=== PATIENT | female | born 1975 | race African-American/Black ===

== ENCOUNTER 2017-06-22 07:18 | Observation (INO) | payer BC, OTHER ==
[2017-06-22] VITALS (10 sets, daily range): BP systolic 99–128; BP diastolic 66–80; PULSE 82–91; RESP 16–18; TEMP 97.9–98.7; O2SAT 96–100
[~2017-06-22] VITALS: Ht 160 cm; Wt 87.0 kg
[~2017-06-22 07:18] MED LIST: MAXZ25 PO; TOPI50TA4 PO
--- NOTE | 2017-06-22 07:35 | PD ---
HPI Chief Complaint: Chest Pain Time Seen by Provider: 07:33 Travel History International Travel<30 days: No Contact w/Intl Traveler<30days: No Traveled to known affect area: No History of Present Illness HPI 41-year-old female patient with history of hypertension, presents to the ER today with 3 days history of 4 out of 10 left-sided abdominal pains which are constant and dull. She denies any nausea, vomiting, shortness of breath, or any other symptoms. She does not know of any exacerbating or alleviating factors. She denies any previous history of chest pains. Modifying Factors: None Associated Signs & Symptoms: Left-sided chest pain for 3 days Risk Factors: None PFSH Past Medical History Asthma: Yes ( INDUCED ASTHMA) Heart Rhythm Problems: No Cardiac Catheterization: No Cardiovascular Problems: Yes (htn) High Cholesterol: No Congestive Heart Failure: No Diabetes: No Diminished Hearing: No Gastrointestinal Disorders: No Genitourinary: Yes (HX OF UTI) Headaches: Yes Hypertension: Yes Immunizations Current: Yes Migraines: Yes Myocardial Infarction: No : 6 Para: 4 Miscarriage: 2 : 0 Tubal Ligation: Yes (2000) Past Surgical History Abdominal Aneurysm Repair: Yes (C SECTION X 2) Abdominal Surgery: Yes ( TIMES 2) Section: Yes (X 2) Coronary Artery Bypass Graft: No Social History Alcohol Use: No Tobacco Use: No Substance Use: No Allergies-Medications (Allergen,Severity, Reaction): Coded Allergies: No Known Allergies (Verified Adverse Reaction, Unknown, 06/22/17) Reported Meds & Prescriptions Reported Meds & Active Scripts Active Reported Topamax (Topiramate) 50 Mg Tab 50 Mg PO BID Meloxicam 15 Mg Tab 15 Mg PO DAILY Metoprolol Succinate ER 24 HR (Metoprolol Succinate) 100 Mg Tab 100 Mg PO DAILY Review of Systems Except as stated in HPI: all other systems reviewed are Neg Physical Exam Narrative GENERAL: Well-developed middle-aged -[place] female patient currently and mild distress. Awake and oriented 3. SKIN: Focused skin assessment warm/dry. HEAD: Atraumatic. Normocephalic. EYES: Pupils equal and round. No scleral icterus. No injection or drainage. ENT: No nasal bleeding or discharge. Mucous membranes pink and moist. NECK: Trachea midline. No JVD. Supple. CARDIOVASCULAR: Regular rate and rhythm. No murmur appreciated. RESPIRATORY: No accessory muscle use. Clear to auscultation. Breath sounds equal bilaterally. GASTROINTESTINAL: Abdomen soft, non-tender, nondistended. Hepatic and splenic margins not palpable. MUSCULOSKELETAL: No obvious deformities. No clubbing. No cyanosis. No edema. NEUROLOGICAL: Awake and alert. No obvious cranial nerve deficits. Motor grossly within normal limits. Normal speech. PSYCHIATRIC: Appropriate mood and affect; insight and judgment normal. Data Data Last Documented VS Vital Signs Date Time Temp Pulse Resp B/P (MAP) Pulse Ox O2 Delivery O2 Flow Rate FiO2 06/22/17 07:30 16 100 Room Air 06/22/17 07:30 86 06/22/17 07:22 98.7 124/73 (90) Orders Orders Electrocardiogram (06/22/17 07:33) Basic Metabolic Panel (Bmp) (06/22/17 07:33) Ckmb (Isoenzyme) Profile (06/22/17 07:33) Complete Blood Count With Diff (06/22/17 07:33) D-Dimer (06/22/17 07:33) Magnesium (Mg) (06/22/17 07:33) Prothrombin Time / Inr (Pt) (06/22/17 07:33) Act Partial Throm Time (Ptt) (06/22/17 07:33) Troponin I (06/22/17 07:33) Chest, Single Ap (06/22/17 07:33) Ecg Monitoring (06/22/17 07:33) Bilateral Bp Monitoring (06/22/17 07:33) Iv Access Insert/Monitor (06/22/17 07:33) Oximetry (06/22/17 07:33) Oxygen Administration (06/22/17 07:33) Sodium Chloride 0.9% Flush (Ns Flush) (06/22/17 07:45) CKMB (06/22/17 07:30) CKMB% (06/22/17 07:30) Potassium Chlor 20 Meq Premix (Kcl 20 Me (06/22/17 08:15) Potassium Chloride Eff (K-Lyte Cl Eff) (06/22/17 08:15) Sodium Chlor 0.9% 1000 Ml Inj (Ns 1000 M (06/22/17 09:00) Admit Order (Ed Use Only) (06/22/17 09:05) Labs Laboratory Tests Test 06/22/17 07:30 White Blood Count 5.1 TH/MM3 Red Blood Count 4.38 MIL/MM3 Hemoglobin 10.5 GM/DL Hematocrit 33.7 % Mean Corpuscular Volume 77.0 FL Mean Corpuscular Hemoglobin 24.0 PG Mean Corpuscular Hemoglobin Concent 31.1 % Red Cell Distribution Width 15.2 % Platelet Count 395 TH/MM3 Mean Platelet Volume 7.3 FL Neutrophils (%) (Auto) 49.6 % Lymphocytes (%) (Auto) 40.5 % Monocytes (%) (Auto) 7.5 % Eosinophils (%) (Auto) 1.6 % Basophils (%) (Auto) 0.8 % Neutrophils # (Auto) 2.5 TH/MM3 Lymphocytes # (Auto) 2.1 TH/MM3 Monocytes # (Auto) 0.4 TH/MM3 Eosinophils # (Auto) 0.1 TH/MM3 Basophils # (Auto) 0.0 TH/MM3 CBC Comment AUTO DIFF Differential Comment AUTO DIFF CONFIRMED Prothrombin Time 10.0 SEC Prothromb Time International Ratio 1.0 RATIO Activated Partial Thromboplast Time 27.1 SEC D-Dimer Quantitative (PE/DVT) LESS THAN 0.19 MG/L FEU Blood Urea Nitrogen 18 MG/DL Creatinine 0.97 MG/DL Random Glucose 98 MG/DL Calcium Level 8.4 MG/DL Magnesium Level 1.9 MG/DL Sodium Level 136 MEQ/L Potassium Level 2.8 MEQ/L Chloride Level 101 MEQ/L Carbon Dioxide Level 28.3 MEQ/L Anion Gap 7 MEQ/L Estimat Glomerular Filtration Rate 76 ML/MIN Total Creatine Kinase 152 U/L Creatine Kinase MB 0.8 NG/ML Troponin I LESS THAN 0.02 NG/ML MDM Medical Decision Making Medical Screen Exam Complete: Yes Emergency Medical Condition: Yes Medical Record Reviewed: Yes Interpretation(s) EKG shows normal sinus rhythm at a rate of 87 bpm. There is LVH. No signs of acute ST elevations or depressions. Laboratory Tests Test 06/22/17 07:30 Hemoglobin 10.5 GM/DL (11.6-15.3) Hematocrit 33.7 % (35.0-46.0) Mean Corpuscular Volume 77.0 FL (80.0-100.0) Mean Corpuscular Hemoglobin 24.0 PG (27.0-34.0) Mean Corpuscular Hemoglobin Concent 31.1 % (32.0-36.0) Calcium Level 8.4 MG/DL (8.5-10.1) Potassium Level 2.8 MEQ/L (3.5-5.1) Estimat Glomerular Filtration Rate 76 ML/MIN (>89) Troponin I LESS THAN 0.02 NG/ML Last 24 hours Impressions Chest X-Ray 06/22/17 0733 Signed Impressions: Service Date/Time: Thursday, June 22, 2017 07:44 - CONCLUSION: 1. No acute cardiopulmonary disease. Edmundo Andrews MD Differential Diagnosis Chest pain: Costochondritis versus pneumonia versus PE versus ACS Narrative Course Lab work shows hypokalemia and IV potassium and p.o. potassium was given in the ER. Cardiac enzymes are negative. EKG did not show any signs of acute ST changes. Chest x-ray was unremarkable. Vital signs are stable in the ER. At this point, my plan would be to admit her to the chest pain center for further evaluation and for treatment for hypokalemia. Case was discussed with Dr. Blood for admission. Diagnosis Primary Impression: Chest pain Additional Impression: Hypokalemia Admitting Information Admitting Physician Requests: Admit Shelby Jasso MD Jun 22, 2017 07:35
[2017-06-22 07:42] LABS: AUTOMATED NEUTROPHIL # 2.5 TH/MM3 (1.8-7.7); BASOPHIL % 0.8 % (0.0-2.0); EOSINOPHIL # 0.1 TH/MM3 (0-0.4); EOSINOPHIL % 1.6 % (0.0-4.0); HEMATOCRIT 33.7 % (35.0-46.0); HEMOGLOBIN 10.5 GM/DL (11.6-15.3); LYMPH % 40.5 % (9.0-44.0); LYMPHOCYTE # 2.1 TH/MM3 (1.0-4.8); MEAN CORPUSCULAR HGB CONC 31.1 % (32.0-36.0); MEAN PLATELET VOLUME 7.3 FL (7.0-11.0); MONO % 7.5 % (0.0-8.0); MONOCYTE # 0.4 TH/MM3 (0-0.9); NEUT % 49.6 % (16.0-70.0); PLATELET COUNT 395 TH/MM3 (150-450); RED BLOOD COUNT 4.38 MIL/MM3 (4.00-5.30); RED CELL DISTRIBUTION WIDTH 15.2 % (11.6-17.2); WHITE BLOOD COUNT 5.1 TH/MM3 (4.0-11.0)
[2017-06-22] MEDS ORDERED: SODIUM CHLORIDE 0.9% FLUSH 10 ML FLUSH IVF PRN (07:45)
--- NOTE | 2017-06-22 07:54 | RADRPT ---
EXAM DATE/TIME: 06/22/2017 07:44 [facility] COMPARISON: No previous studies available for comparison. INDICATIONS : Chest pain on and off for 3 days. MEDICAL HISTORY : Hypertension. SURGICAL HISTORY : None. ENCOUNTER: Initial ACUITY: 3 days PAIN SCORE: 4/10 LOCATION: Bilateral chest FINDINGS: A single view of the chest demonstrates the lungs to be symmetrically aerated without evidence of mas s, infiltrate or effusion. The cardiomediastinal contours are unremarkable. Levoscoliosis of the lo wer thoracic spine. Osseous structures are intact. CONCLUSION: 1. No acute cardiopulmonary disease. Edmundo Andrews MD on June 22, 2017 at 7:52 Board Certified Radiologist. This report was verified electronically.
[2017-06-22 08:03] LABS: BICARBONATE 28.3 MEQ/L (21.0-32.0); CALCIUM 8.4 MG/DL (8.5-10.1); CHLORIDE 101 MEQ/L (98-107); CREATININE 0.97 MG/DL (0.50-1.00); GLOMERULAR FILTRATION RATE 76 ML/MIN (>89); GLUCOSE,RANDOM 98 MG/DL (74-106); MAGNESIUM 1.9 MG/DL (1.5-2.5); SODIUM (NA) 136 MEQ/L (136-145); TROPONIN I LESS THAN 0.02 NG/ML (0.02-0.05)
[2017-06-22 08:04] LABS: BLOOD UREA NITROGEN 18 MG/DL (7-18)
[2017-06-22] MEDS ORDERED: TOPA50TA7 PO (08:05)
[2017-06-22] MEDS ORDERED: MELO15TA20 PO (08:05)
[2017-06-22] MEDS ORDERED: METO1TAB43 PO (08:05)
[2017-06-22] MEDS ORDERED: POTASSIUM CHLOR 20 MEQ PREMIX 100 ML IV ONE (08:15)
[2017-06-22] MEDS ORDERED: POTASSIUM CHLORIDE 25 MEQ EFFERVESCENT TAB PO ONE (08:15)
[2017-06-22 08:33] LABS: D-DIMER LESS THAN 0.19 MG/L FEU (0.00-0.50)
[2017-06-22] MEDS ORDERED: SODIUM CHLOR 0.9% 1000 ML INJ 1,000 ML IV ONE (09:00)
[2017-06-22] MEDS ORDERED: ACETAMINOPHEN 500 MG CPLT PO PRN (10:00)
[2017-06-22] MEDS ORDERED: POTASSIUM CHLORIDE 10 MEQ CONTROLLED RELEASE TAB PO ONE (10:00)
[2017-06-22] MEDS ORDERED: ONDANSETRON HCL 4 MG/2 ML VIAL IV PUSH PRN (10:00)
[2017-06-22] MEDS ORDERED: SODIUM CHLORIDE 0.9% FLUSH 10 ML FLUSH IV FLUSH PRN (10:00)
[2017-06-22 11:05] LABS: MAGNESIUM 1.8 MG/DL (1.5-2.5)
--- NOTE | 2017-06-22 11:11 | HHI.HP ---
[facility] Service [facility] Primary Care Physician Malcom Hayes, DO Admission Diagnosis Chest pain/hypokalemia Diagnoses: (1) Chest pain Diagnosis: Principal (2) Hypokalemia Diagnosis: Principal Chief Complaint: Chest pain Travel History International Travel<30 Days: No Contact w/Intl Traveler <30 Da: No Traveled to Known Affected Are: No History of Present Illness This is a pleasant 41-year-old female patient with unknown medical history of hypertension and migraines who presented to the ED with complaints of chest pain. Patient states that over the last three days she has had intermittent chest discomfort that comes and goes randomly, she states the pain is sharp in nature located in her midsternal chest, denies any radiation of pain. Patient states the pain is a four out of ten on pain scale at its worse, lasts several seconds and randomly subsides. Denies any associated diaphoresis, shortness of breath or vomiting. She does state that she's had intermittent nausea and dizziness for the past couple days associated with the pain. Patient denies any known alleviating or relieving factors. Patient states that she did take some Tums and Zantac this morning possibly relating the pain to reflux, which did not help the pain. She does state she took her BP this morning which was elevated. Patient works as an COMMUNICATIONS FIELD TECHNICIAN, has been recently diagnosed with scoliosis and has intermittently complained of back pain. Two weeks ago she saw Dr. Bradley who prescribed her Meloxicam, denies any other changes to her medications. Denies ever undergoing a cardiac stress test. Denies any past or current tobacco use. Mother had an MN at the age of 50. Denies any recent illness including fever, chills, headache, shortness of breath, ab pain, vomiting, diarrhea or dysuria. PCP is Dr. Hayes, last seen 2 months ago with no changes to medications. Review of Systems Constitutional: DENIES: Fever, Chills Eyes: DENIES: Blurred vision, Diplopia Respiratory: DENIES: Cough, Shortness of breath Cardiovascular: COMPLAINS OF: Chest pain, Palpitations, DENIES: Syncope Gastrointestinal: COMPLAINS OF: Nausea, DENIES: Abdominal pain, Black stools, Constipation, Diarrhea, Vomiting Hematologic/lymphatic: DENIES: Bruising Immunologic/allergic: DENIES: Eczema Neurologic: DENIES: Abnormal gait Psychiatric: COMPLAINS OF: Anxiety Except as stated in HPI: all other systems reviewed are Neg Past Family Social History Past Medical History Hypertension Arthritis Migraines Past Surgical History 2 Reported Medications Active Reported Topamax (Topiramate) 50 Mg Tab 50 Mg PO BID Meloxicam 15 Mg Tab 15 Mg PO DAILY Metoprolol Succinate ER 24 HR (Metoprolol Succinate) 100 Mg Tab 100 Mg PO DAILY Allergies: Coded Allergies: No Known Allergies (Verified Allergy, Unknown, 06/22/17) Active Ordered Medications Current Medications Medications (Trade) Dose Ordered Sig/Jero Route Start Time Stop Time Status Last Admin (NS Flush) 2 ml UNSCH PRN IVF 06/22/17 07:45 (NS Flush) 2 ml UNSCH PRN IV FLUSH 06/22/17 10:00 (NS Flush) 2 ml BID IV FLUSH 06/22/17 21:00 (Tylenol) 500 mg Q4H PRN PO 06/22/17 10:00 (Zofran Inj) 4 mg Q6H PRN IV PUSH 06/22/17 10:00 Family History Maternal medical history significant for MN at the age of 50, stroke and brain aneurysm. Father has history of hypertension. Social History Denies any past or current tobacco use, denies any alcohol use or illicit drug use. Physical Exam Vital Signs Vital Signs Date Time Temp Pulse Resp B/P (MAP) Pulse Ox O2 Delivery O2 Flow Rate FiO2 06/22/17 10:45 06/22/17 10:10 91 16 105/67 (80) 100 Room Air 06/22/17 09:10 84 16 99/68 (78) 100 Room Air 06/22/17 08:10 87 16 106/66 (79) 100 Room Air 06/22/17 07:30 16 100 Room Air 06/22/17 07:30 86 16 100 Room Air 06/22/17 07:30 100 Room Air 06/22/17 07:22 98.7 86 16 124/73 (90) 100 Physical Exam GENERAL: Well-nourished, well-developed patient in NAD. SKIN: Warm and dry. No rash. HEAD: Normocephalic. Atraumatic. EYES: Pupils equal and round. No scleral icterus. No injection or drainage. ENT: No nasal bleeding or discharge. Mucous membranes pink and moist. NECK: Supple. Trachea midline. CARDIOVASCULAR: Regular rate and rhythm. S1, S2 noted. No murmur appreciated. No reproducible chest pain to palpation. RESPIRATORY: No accessory muscle use. Clear to auscultation. Breath sounds equal bilaterally. GASTROINTESTINAL: Abdomen soft, non-tender, nondistended. Normoactive bowel sounds x4. MUSCULOSKELETAL: No obvious deformities. Extremities without clubbing, cyanosis , or edema. NEUROLOGICAL: Awake and alert. No obvious cranial nerve deficits. Motor grossly within normal limits. 5/5 muscle strength in bilateral upper and lower extremities. Normal speech. PSYCHIATRIC: Appropriate mood and affect; insight and judgment normal. Laboratory Laboratory Tests Test 06/22/17 07:30 06/22/17 10:30 White Blood Count 5.1 Red Blood Count 4.38 Hemoglobin 10.5 Hematocrit 33.7 Mean Corpuscular Volume 77.0 Mean Corpuscular Hemoglobin 24.0 Mean Corpuscular Hemoglobin Concent 31.1 Red Cell Distribution Width 15.2 Platelet Count 395 Mean Platelet Volume 7.3 Neutrophils (%) (Auto) 49.6 Lymphocytes (%) (Auto) 40.5 Monocytes (%) (Auto) 7.5 Eosinophils (%) (Auto) 1.6 Basophils (%) (Auto) 0.8 Neutrophils # (Auto) 2.5 Lymphocytes # (Auto) 2.1 Monocytes # (Auto) 0.4 Eosinophils # (Auto) 0.1 Basophils # (Auto) 0.0 CBC Comment AUTO DIFF Differential Comment AUTO DIFF CONFIRMED Prothrombin Time 10.0 Prothromb Time International Ratio 1.0 Activated Partial Thromboplast Time 27.1 D-Dimer Quantitative (PE/DVT) LESS THAN 0.19 Blood Urea Nitrogen 18 Creatinine 0.97 Random Glucose 98 Calcium Level 8.4 Magnesium Level 1.9 1.8 Sodium Level 136 Potassium Level 2.8 Chloride Level 101 Carbon Dioxide Level 28.3 Anion Gap 7 Estimat Glomerular Filtration Rate 76 Total Creatine Kinase 152 Creatine Kinase MB 0.8 Troponin I LESS THAN 0.02 Result Diagram: 06/22/1772906/22/17729 Imaging Last Impressions Chest X-Ray 06/22/17732 Signed Impressions: Service Date/Time: Thursday, June 22, 2017 07:44 - CONCLUSION: 1. No acute cardiopulmonary disease. Edmundo Andrews MD Septic Shock Reassessment Septic shock perfusion: reassessment completed Caprini VTE Risk Assessment Caprini VTE Risk Assessment: No/Low Risk (score <= 1) Caprini Risk Assessment Model Point Value = 1 Point Value = 2 Point Value = 3 Point Value = 5 Age 41-60 Minor surgery BMI > 25 kg/m2 Swollen legs Varicose veins or History of unexplained or recurrent spontaneous Oral contraceptives or hormone replacement Sepsis (< 1 month) Serious lung disease, including pneumonia (< 1 month) Abnormal pulmonary function Acute myocardial infarction Congestive heart failure (< 1 month) History of inflammatory bowel disease Medical patient at bed rest Age 61-74 Arthroscopic surgery Major open surgery (> 45 min) Laparoscopic surgery (> 45 min) Malignancy Confined to bed (> 72 hours) Immobilizing plaster cast Central venous access Age >= 75 History of VTE Family history of VTE Factor V Leiden Prothrombin [id number] Lupus anticoagulant Anticardiolipin antibodies Elevated serum homocysteine Heparin-induced thrombocytopenia Other congenital or acquired thrombophilia Stroke (< 1 month) Elective arthroplasty Hip, pelvis, or leg fracture Acute spinal cord injury (< 1 month) Prophylaxis Regimen Total Risk Factor Score Risk Level Prophylaxis Regimen 0-1 Low Early ambulation 2 Moderate Order ONE of the following: *Sequential Compression Device (SCD) *Heparin 5000 units SQ BID 3-4 Higher Order ONE of the following medications: *Heparin 5000 units SQ TID *Enoxaparin/Lovenox 40 mg SQ daily (WT < 150 kg, CrCl > 30 mL/min) *Enoxaparin/Lovenox 30 mg SQ daily (WT < 150 kg, CrCl > 10-29 mL/min) *Enoxaparin/Lovenox 30 mg SQ BID (WT < 150 kg, CrCl > 30 mL/min) AND/OR *Sequential Compression Device (SCD) 5 or more Highest Order ONE of the following medications: *Heparin 5000 units SQ TID (Preferred with Epidurals) *Enoxaparin/Lovenox 40 mg SQ daily (WT < 150 kg, CrCl > 30 mL/min) *Enoxaparin/Lovenox 30 mg SQ daily (WT < 150 kg, CrCl > 10-29 mL/min) *Enoxaparin/Lovenox 30 mg SQ BID (WT < 150 kg, CrCl > 30 mL/min) AND *Sequential Compression Device (SCD) Assessment and Plan Problem List: (1) Chest pain ICD Code: R07.9 - Chest pain, unspecified Status: Acute Plan: Patient has been admitted to the chest pain center for observation. Serial EKGs and serial troponins and ordered for ruling out ACS purposes. Initial troponin negative. Follow trend. Chest pain has resolved. Continue cardiac telemetry, monitor for any arrhythmias. Chest x-ray reviewed showing no acute cardiopulmonary disease. D-dimer is negative. CBC reviewed, appears that patient has chronic anemia, stable. Aspirin ordered. EKG reviewed showing normal sinus rhythm, controlled heart rate, no ST changes. Patient will likely undergo a cardiac treadmill stress test to further rule out any possibility of ischemia. Patient stable at this time and agreeable to the plan. (2) Hypokalemia ICD Code: E87.6 - Hypokalemia Status: Acute Plan: Potassium on admission 2.8. Replacement ordered. Recheck this afternoon. (3) Hypertension ICD Code: I10 - Essential (primary) hypertension Plan: Blood pressure has been controlled. Continue to monitor. Assessment and Plan Patient underwent cardiac treadmill stress tests, images reviewed by on-call teacher physically impaired for chest pain center, suggesting ischemia. Recommendations for Lexiscan. Patient updated about results, agreeable to the plan. Will continue to monitor. Patient underwent Lexiscan, EF 54%, unremarkable, low risk. Intact wall motion and thickening without hypokinetic or dyskinetic segments. Patient updated about results, will discharge home with recommendations to follow-up with PCP. Hypokalemia resolved. Vickie Blackmon Jun 22, 2017 11:11
[2017-06-22 11:13] LABS: TROPONIN I LESS THAN 0.02 NG/ML (0.02-0.05)
[2017-06-22] MEDS ORDERED: ASPIRIN 325 MG TAB PO ONE (11:30)
[2017-06-22] MEDS ORDERED: REGADENOSON INJ 0.4 MG/5 ML SYR IV ONE (15:06)
[2017-06-22] MEDS ORDERED: POTASSIUM CHLORIDE 20 MEQ CONTROLLED RELEASE TAB PO ONE (16:15)
--- NOTE | 2017-06-22 16:31 | RADRPT ---
EXAM DATE/TIME: 06/22/2017 14:55 [facility] COMPARISON: No previous studies available for comparison. INDICATIONS : Substernal chest pain with nausea and dizziness. Angina. Abnormal exercise treadmill test. DOSE: 25.4 mCi Tc99m Myoview at stress. 8.5 mCi Tc99m Myoview at rest. 0.4 mg Lexiscan STRESS SYMPTOMS: Dyspnea, dizziness and headache. EJECTION FRACTION: 54% MEDICAL HISTORY : Hypertension. Asthma. SURGICAL HISTORY : Tubal ligation. section. ENCOUNTER: Initial ACUITY: 1 day PAIN SCALE: 6/10 LOCATION: Substernal chest TECHNIQUE: The patient underwent pharmacologic stress with infusion of prescribed dose. Continuous ECG tracing was monitored during stress. Gated SPECT imaging was performed after stress and conventional SPECT i maging was performed at rest. The examination was performed on a SPECT/CT scanner, both attenuation and non-corrected datasets were reviewed. FINDINGS: DISTRIBUTION: The maximum perfused segment at stress is in the lateral wall. PERFUSION STUDY: The pattern of perfusion at stress is within normal limits. GATED STUDY: There is intact wall motion and thickening without hypokinetic or dyskinetic segments. CONCLUSION: Unremarkable myocardial perfusion scan. RISK CATEGORY: Low (<1% Annual Mortality Rate) Darwin Camejo MD on June 22, 2017 at 16:29 Board Certified Radiologist. This report was verified electronically.
--- NOTE | 2017-06-22 16:53 | HHI.DCPOC ---
Discharge Care Plan Diagnosis: (1) Hypokalemia (2) Chest pain Goals to Promote Your Health * To prevent worsening of your condition and complications * To maintain your health at the optimal level Directions to Meet Your Goals Take your medications as prescribed Follow your dietary instruction Follow activity as directed Keep your appointments as scheduled Take your immunizations and boosters as scheduled If your symptoms worsen call your PCP, if no PCP go to Urgent Care Center or Emergency Room Smoking is Dangerous to Your Health. Avoid second hand smoke Call the 24-hour hour crisis hotline for domestic abuse at Vickie Blackmon Jun 22, 2017 16:52
[2017-06-22 17:40] LABS: CHOLESTEROL/ HDL RATIO 2.99 RATIO; HDL CHOLESTEROL 58.5 MG/DL (40.0-60.0)
--- NOTE | 2017-06-22 19:49 | EKG ---
Date Performed: 06/22/2017 Time Performed: 10:31:24 PTAGE: 41 years EKG: Sinus rhythm MINIMAL VOLTAGE CRITERIA FOR LVH, CONSIDER NORMAL VARIANT BORDERLINE ECG PREVIOUS TRACING : 06/22/2017 07.26 Since the prior tracing, there has been no significant arias DOCTOR: Cely Wilcox Interpretating Date/Time 06/22/2017 19:47:53
--- NOTE | 2017-06-22 19:49 | EKG ---
Date Performed: 06/22/2017 Time Performed: 07:26:43 PTAGE: 41 years EKG: Sinus rhythm MODERATE VOLTAGE CRITERIA FOR LVH, CONSIDER NORMAL VARIANT NONSPECIFIC T-WAVE ABNORMALITY BORDERLINE ECG PREVIOUS TRACING : 08/18/2015 02.49 DOCTOR: Cely Wilcox Interpretating Date/Time 06/22/2017 19:47:37
[2017-06-22] MEDS ORDERED: SODIUM CHLORIDE 0.9% FLUSH 10 ML FLUSH IV FLUSH SCH (21:00)
[2017-06-22] MEDS ORDERED: TOPIRAMATE 25 MG TAB PO SCH (21:00)
[2017-06-23] MEDS ORDERED: MELOXICAM 15 MG TAB PO SCH (09:00)
--- NOTE | 2017-06-23 15:59 | TR ---
Date Performed: 06/22/2017 Time Performed: 15:18:12 DOCTOR: Darwin Kowalski DRUG LIST: CLINICAL HISTORY: CHEST PAIN REASON FOR TEST: Angina REASON FOR ENDING: OBSERVATION: CONCLUSION: COMMENTS: Lexiscan stress test was performed under standard four minute protocol. Radionuclide was injected one minute prior to ending the test. No electrocardiographic abormalities were present t o suggest ischemia. Nuclear imaging and interpretation are pending.
== END 2017-06-22 18:52 | disposition home or self-care (01) ==
LOC: PHED 07:18 → PHEDA 09:06 → PH3B 10:48
PROVIDERS: ADMIT Hospitalist; ATTEND Hospitalist
DX: R07.89 Other chest pain (principal); E87.6 Hypokalemia; I10 Essential (primary) hypertension; M19.90 Unspecified osteoarthritis, unspecified site; G43.909 Migraine, unspecified, not intractable, without status migrainosus; D64.9 Anemia, unspecified; Z79.899 Other long term (current) drug therapy; R42 Dizziness and giddiness; R11.0 Nausea; M41.9 Scoliosis, unspecified; M54.9 Dorsalgia, unspecified; R94.31 Abnormal electrocardiogram [ECG] [EKG]
CPT/HCPCS: 71045; 78452; 80048; 80061; 82550; 82552; 83735; 84132; 84484; 85025; 85379; 85610; 85730; 93005; 93017; 96365; 96366; 99285; A9502; G0378; J2785; J3480; J7030

== ENCOUNTER 2017-09-21 09:01 | Emergency (ER) | payer OTHER ==
[~2017-09-21] VITALS: Ht 160 cm; Wt 89.0 kg
[~2017-09-21 09:01] MED LIST changes: -MAXZ25 PO; +MELO15TA20 PO; +METO1TAB43 PO; +TOPA50TA7 PO; -TOPI50TA4 PO
[2017-09-21 09:07] VITALS: BP 143/77; PULSE 97; RESP 16; TEMP 98.5; O2SAT 100
[2017-09-21] MEDS ORDERED: methylPREDNISolone SOD SUCC 125 MG/2 ML VIAL IM ONE (10:30)
[2017-09-21] MEDS ORDERED: KETOROLAC TROMETHAMINE 60 MG/2 ML (IM) VIAL IM ONE (10:30)
[2017-09-21] MEDS ORDERED: METHOCARBAMOL 500 MG TAB PO ONE (10:30)
--- NOTE | 2017-09-21 10:59 | PD ---
HPI Chief Complaint: Musculoskeletal Complaint Time Seen by Provider: 10:10 (Enedina Hastings) Time Seen by Provider: 10:10 (Isac Tejeda MD) Travel History International Travel<30 days: No Contact w/Intl Traveler<30days: No Traveled to known affect area: No (Enedina Hastings) History of Present Illness HPI 41-year-old female presents emergency department complaining of left lower lumbar pain with radiation into the buttocks that has been present for approximately 1 week. Says that she has a history of scoliosis and recently followed up with an orthopedic physician 1 month ago but has not followed up with a primary care or anyone else regarding these complaints today. Patient says she has had some tingling of the left thigh but denies any numbness. Denies significant weakness although says she has had difficulty getting into her car because of the pain. Her pain is moderate in severity. Says she is used [id number] medications and ice packs without significant improvement. This pain is similar to her previous episodes. Denies fevers, loss of bowel or bladder function, saddle anesthesia, IV drug use, direct trauma. (Enedina Hastings) FOR[facility]LY [facility] Past Medical History Anemia: Yes Asthma: Yes ( INDUCED ASTHMA) Heart Rhythm Problems: No Cardiac Catheterization: No Cardiovascular Problems: Yes (htn) High Cholesterol: No Congestive Heart Failure: No Diabetes: No Diminished Hearing: No Gastrointestinal Disorders: No Genitourinary: Yes (HX OF UTI) Headaches: Yes Hypertension: Yes Immunizations Current: Yes Migraines: Yes Myocardial Infarction: No : 5 Para: 4 Miscarriage: 1 : 0 Tubal Ligation: Yes (2000) (Enedina Hastings) Past Surgical History Abdominal Aneurysm Repair: Yes (C SECTION X 2) Abdominal Surgery: Yes ( TIMES 2) Section: Yes (X 2) Coronary Artery Bypass Graft: No (Enedina Hastings) Social History Alcohol Use: No Tobacco Use: No (NEVER) Substance Use: No (Enedina Hastings) Allergies-Medications (Allergen,Severity, Reaction): Coded Allergies: No Known Allergies (Verified Allergy, Unknown, 09/21/17) Reported Meds & Prescriptions Reported Meds & Active Scripts Active (Isac Tejeda MD) Review of Systems Except as stated in HPI: all other systems reviewed are Neg (Enedina Hastings) Physical Exam Narrative GENERAL: Well-nourished, well-developed patient, in NAD SKIN: Focused skin assessment warm/dry. No rashes or lesions. HEAD: Normocephalic. Atraumatic. EYES: No scleral icterus. No injection or drainage. THROAT: No pharyngeal injection, exudates, or tonsillar hypertrophy. Airway is patent. NECK: Supple, trachea midline. No JVD or lymphadenopathy. No meningismus. No midline tenderness CARDIOVASCULAR: Regular rate and rhythm without murmurs, gallops, or rubs. RESPIRATORY: Breath sounds equal bilaterally. No accessory muscle use. No wheezes, rales, or rhonchi MUSCULOSKELETAL: No cyanosis, or edema. BACK: No CVA tenderness. No rash. No point tenderness on palpation of the spine. Significant TTP to left lower paraspinous muscles with obvious muscle tension and spasms. Neurovascularly intact lower extremities. (Enedina Hastings) Data Data Last Documented VS Vital Signs Date Time Temp Pulse Resp B/P (MAP) Pulse Ox O2 Delivery O2 Flow Rate FiO2 09/21/17 11:11 16 09/21/17 09:07 98.5 97 143/77 (99) 100 (Isac Tejeda MD) Orders Orders Methocarbamol (Robaxin) (09/21/17 10:30) Methylprednisolone So Succ Inj (Solumedr (09/21/17 10:30) Ketorolac Inj (Toradol Inj) (09/21/17 10:30) Ed Discharge Order (09/21/17 11:20) (Isac Tejeda MD) MDM Medical Decision Making Medical Screen Exam Complete: Yes Emergency Medical Condition: Yes Differential Diagnosis lumbago, sciatica, muscle spasms, fracture, cauda equina syndrome Narrative Course 41-year-old female presents emergency department complaining of left lower lumbar pain with radiation into the buttocks that has been present for approximately 1 week. Says that she has a history of scoliosis and recently followed up with an orthopedic physician 1 month ago but has not followed up with a primary care or anyone else regarding these complaints today. Denies inciting events. Patient says she has had some tingling of the left thigh but denies any numbness. Denies significant weakness although says she has had difficulty getting into her car because of the pain. Her pain is moderate in severity. Says she is used [id number] medications and ice packs without significant improvement. This pain is similar to her previous episodes. Denies fevers, loss of bowel or bladder function, saddle anesthesia, IV drug use , direct trauma. Vital signs are stable. Physical exam findings consistent with muscle spasms the left lumbar paraspinous muscles with some tenderness palpation of the left glutes. Patient given Robaxin, Solu-Medrol, Toradol in the emergency department today. She will be discharged with Robaxin and Medrol Dosepak. She may continue Tylenol Motrin per package instructions for pain relief. She strongly advised to follow-up with primary care physician and orthopedic physician as her scoliosis may be worsening. (Enedina Hastings) Diagnosis Primary Impression: Lumbago Qualified Codes: M54.42 - Lumbago with sciatica, left side Referrals: Orthopedist Primary Care Physician Additional Instructions: Perform light stretches of the lower back and legs, and alternate heat and ice packs. If you develop increased pain, weakness, fever, chills, or bowel or bladder issues, return to the ED for further treatment and evaluation. Follow up with your primary care physician in 2-3 days. Disposition: 01 DISCHARGE HOME Condition: Stable Enedina Hastings September 21, 2017 10:59 Isac Tejeda MD September 21, 2017 13:39
[2017-09-21] MEDS ORDERED: ROBA500T PO (11:00)
[2017-09-21] MEDS ORDERED: MEDR4PAK PO (11:00)
== END 2017-09-21 11:21 | disposition home or self-care (01) ==
LOC: PHED 09:01 → PHEFT 11:21
DX: M54.42 Lumbago with sciatica, left side (principal); D64.9 Anemia, unspecified; I10 Essential (primary) hypertension
CPT/HCPCS: 96372; 99283; J1885; J2930

== ENCOUNTER 2017-09-26 08:19 | Emergency (ER) | payer OTHER ==
[~2017-09-26] VITALS: Ht 160 cm; Wt 89.0 kg
[2017-09-26 08:23] VITALS: BP 156/86; PULSE 91; RESP 16; TEMP 98.2; O2SAT 98
[2017-09-26] MEDS ORDERED: ACETAMINOPHEN/HYDROcodone 325 MG/5 MG TAB PO ONE (08:45)
[2017-09-26] MEDS ORDERED: DIAZEPAM 5 MG TAB PO ONE (08:45)
[2017-09-26] MEDS ORDERED: TOPA50TA7 PO (08:46)
[2017-09-26] MEDS ORDERED: METO100T PO (08:46)
--- NOTE | 2017-09-26 08:47 | PD ---
HPI Chief Complaint: Back/ Neck Pain or Injury Time Seen by Provider: 08:30 Travel History International Travel<30 days: No Contact w/Intl Traveler<30days: No Traveled to known affect area: No History of Present Illness HPI 41yo F with PMH of scoliosis here with c/o left buttocks pain radiating down left leg. Pt said it has been going on for a month but worst in the last few days. Pain is sharp, shooting down left leg and worst with movement. Denies any fever, trauma, focal weakness, focal numbness, IVDA, urinary or fecal incontinence. Pt was evaluated here on 09/21/17 for similar complaints and was given toradol and robaxin in the ED. Pt was discharged with robaxin and medrol dosepak and said it is not helping. Denies any chest pain, sob, n/v, abdominal pain, history of PE/DVT. PFSH Past Medical History Anemia: Yes Asthma: Yes ( INDUCED ASTHMA) Heart Rhythm Problems: No Cardiac Catheterization: No Cardiovascular Problems: Yes (htn) High Cholesterol: No Congestive Heart Failure: No Diabetes: No Diminished Hearing: No Gastrointestinal Disorders: No Genitourinary: Yes (HX OF UTI) Headaches: Yes Hypertension: Yes Immunizations Current: Yes Migraines: Yes Myocardial Infarction: No Tetanus Vaccination: < 5 Years Influenza Vaccination: Yes ?: Not LMP: 2 week ago : 5 Para: 4 Miscarriage: 1 : 0 Tubal Ligation: Yes (2000) Past Surgical History Abdominal Aneurysm Repair: Yes (C SECTION X 2) Abdominal Surgery: Yes ( TIMES 2) Section: Yes (X 2) Coronary Artery Bypass Graft: No Social History Alcohol Use: Yes (occas wine) Tobacco Use: No (NEVER) Substance Use: No Allergies-Medications (Allergen,Severity, Reaction): Coded Allergies: No Known Allergies (Verified Allergy, Unknown, 09/26/17) Reported Meds & Prescriptions Reported Meds & Active Scripts Active Reported Topamax (Topiramate) 50 Mg Tab 50 Mg PO BID PRN Metoprolol Tartrate 100 Mg Tab 100 Mg PO DAILY Review of Systems Except as stated in HPI: all other systems reviewed are Neg Physical Exam Narrative GENERAL: 41yo F in mild distress. SKIN: Focused skin assessment warm/dry. HEAD: Atraumatic. Normocephalic. CARDIOVASCULAR: Regular rate and rhythm. No murmur appreciated. RESPIRATORY: No accessory muscle use. Clear to auscultation. Breath sounds equal bilaterally. GASTROINTESTINAL: Abdomen soft, non-tender, nondistended. BACK: No midline ttp thoracic or lumbar spine. MUSCULOSKELETAL: +TTP left gluteus sarah. +Straight leg test in left leg. Distal pulses intact in bilateral extremities. Sensation intact. No edema. NEUROLOGICAL: Awake and alert. No obvious cranial nerve deficits. Motor grossly within normal limits in all extremities. Normal speech. PSYCHIATRIC: Appropriate mood and affect; insight and judgment normal. Data Data Last Documented VS Vital Signs Date Time Temp Pulse Resp B/P (MAP) Pulse Ox O2 Delivery O2 Flow Rate FiO2 09/26/17 08:23 98.2 91 16 156/86 (109) 98 Orders Orders Diazepam (Valium) (09/26/17 08:45) Acetamin-Hydrocod 325-5 Mg ([place] 5-325 (09/26/17 08:45) MDM Medical Decision Making Medical Screen Exam Complete: Yes Emergency Medical Condition: Yes Differential Diagnosis Sciatic nerve pain vs. musculoskeletal pain Narrative Course 41yo F with left buttocks pain radiating to left leg. No red flags. Pt given valium and lortab which helped with the pain. Will give work note. Pt to follow up with primary care physician. Return precautions given. Diagnosis Primary Impression: Sciatic leg pain Patient Instructions: General Instructions Departure Forms: Tests/Procedures, Work Release Enter return to work date: September 28, 2017 Additional Instructions: Please take ibuprofen or acetaminophen as needed for pain. Return to the ED if symptoms worsen. Please follow up with your primary care physician in 2-3 days. Med/Other Pt SpecificInfo: Prescription(s) given Scripts Acetaminophen (Tylenol) 325 Mg Tab 650 MG PO Q6H Y for PAIN SCALE 1 TO 4, #20 TAB 0 Refills Prov: Pennie Harden DO 09/26/17 Disposition: 01 DISCHARGE HOME Condition: Stable Pennie Harden DO September 26, 2017 08:47
[2017-09-26] MEDS ORDERED: TYLE325T PO (09:44)
== END 2017-09-26 10:18 | disposition home or self-care (01) ==
LOC: PHED 08:19
DX: M54.32 Sciatica, left side (principal); D64.9 Anemia, unspecified; J45.909 Unspecified asthma, uncomplicated; I10 Essential (primary) hypertension; Z79.899 Other long term (current) drug therapy
CPT/HCPCS: 99283

== ENCOUNTER 2017-11-22 13:13 | Observation (INO) ==
--- NOTE | 2017-11-22 14:44 | CT ---
EXAM DATE: 11/22/2017 2:37 PM EDT AGE/SEX: 42 years / Female INDICATIONS: Altered mental status, dysphasia. CLINICAL DATA: This is the patient's initial encounter. Patient reports that signs and symptoms have been present for 1 day and indicates a pain score of 0/10. MEDICAL/SURGICAL HISTORY: None. None. RADIATION DOSE: 41.74 CTDI (mGy) COMPARISON: [facility], CT BRAIN W/O CONTRAST, 08/28/2010. . TECHNIQUE: CT of the head without contrast. Using automated exposure control and adjustment of the mA and/or kV according to patient size, radiation dose was kept as low as reasonably achievable to ob tain optimal diagnostic quality images. DICOM format image data is available electronically for revi ew and comparison. FINDINGS: Cerebrum: The ventricles are normal for age. No evidence of midline shift, mass lesion, hemorrhage or acute infarction. No extraaxial fluid collections are seen. Posterior Fossa: The cerebellum and brainstem are intact. The 4th ventricle is midline. The cerebe llopontine angle is unremarkable. Extracranial: The visualized portion of the orbits is intact. Skull: The calvaria is intact. No evidence of skull fracture. CONCLUSION: 1. Negative noncontrast head CT. . Electronically signed by: Paul Ricardo MD 11/22/2017 2:43 PM EDT
--- NOTE | 2017-11-22 14:47 | XR ---
EXAM DATE: 11/22/2017 2:40 PM EDT AGE/SEX: 42 years / Female INDICATIONS: Slurred speech and fast heart beat today, no chest pain at this time CLINICAL DATA: This is the patient's initial encounter. Patient reports that signs and symptoms have been present for 1 day and indicates a pain score of 0/10. MEDICAL/SURGICAL HISTORY: None. None. COMPARISON: [facility], CHEST SINGLE AP, 06/22/2017. . FINDINGS: A single AP view of the chest demonstrates the lungs to be symmetrically aerated without evidence of mass, infiltrate or effusion. The cardiomediastinal contours are unremarkable. Osseous structures a re intact. CONCLUSION: No acute cardiopulmonary disease. Electronically signed by: Paul Ricardo MD 11/22/2017 2:46 PM EDT
[2017-11-22 15:06] LABS: Baso % (Auto) 0.8 % (0.0-2.0); Eos # (Auto) 0.1 th/mm3 (0.0-0.4); Eos % (Auto) 1.9 % (0.0-4.0); Hematocrit 30.3 % (35.0-46.0); Hemoglobin 9.5 gm/dL (11.6-15.3); Lymph # (Auto) 2.4 th/mm3 (1.0-4.8); Lymph % (Auto) 39.8 % (9.0-44.0); Mean Corpuscular HGB Conc 31.4 % (32.0-36.0); Mean Corpuscular Hemoglobin 23.5 pg (27.0-34.0); Mean Corpuscular Volume 74.8 fL (80.0-100.0); Mean Platelet Volume 7.6 fL (7.0-11.0); Mono # (Auto) 0.4 th/mm3 (0.0-0.9); Neut % (Auto) 50.5 % (16.0-70.0); Platelet Count 373 th/mm3 (150-450); Red Blood Count 4.06 mil/mm3 (4.00-5.30); Red Cell Distribution Width 17.6 % (11.6-17.2)
--- NOTE | 2017-11-22 15:17 | ED ---
HPI General Chief Complaint: Neuro Symptoms/Deficit Stated Complaint: possible neuro symptoms Time Seen by Provider: 11/22/17 14:15 Source: patient Mode of arrival: EMS Limitations: no limitations History of Present Illness HPI Narrative: 42-year-old female that presents to the ED for evaluation of possible slurred speech. Patient reports that today she has been having a slight headache with some blurry vision. She has had headaches like this in the past. Per patient she was working and around 1230 the coworkers noticed that she was slurring her speech. Episode lasted less than half an hour. Ambulance was called and per ambulance there was no slurred speech when the evaluated her. Symptoms had improved. Patient does feel that she has a slight headache and feels somewhat lightheaded. Denies any head injury or trauma. No history of CVA on her cell but history of CVA on her family. She states that she has had some difficulty with her left leg and she has some deficits to her left leg that she has had for about 3 weeks now. Per patient she is being followed by her primary care doctor and is currently being worked up with MRIs. She also was told that she is anemic and she was told that her last hemoglobin was 8. She is been having vaginal bleeding that has lasted about 3 weeks now. She denies any nausea or vomiting. She denies any changes in the deficits on the left side from 3 weeks ago. Per patient she has not fallen or hit her forehead. No chest pain or shortness of breath. Related Data Home Medications Medication Instructions Recorded Confirmed celecoxib 200 mg PO BID 11/22/17 11/22/17 megestrol 40 mg PO DAILY 11/22/17 11/22/17 meloxicam 15 mg PO DAILY 11/22/17 11/22/17 triamterene-hydrochlorothiazid 1 cap PO DAILY 11/22/17 11/22/17 Allergies Allergy/AdvReac Type Severity Reaction Status Date / Time No Known Allergies Allergy Verified 11/22/17 14:16 Review of Systems ROS Unobtainable All other systems reviewed negative except as stated in HPI [facility] Medical History Medical History Degeneration of intervertebral disc, site unspecified (Acute) Hypertension (Acute) Social History Social History Substance History: No History of Abuse Second Hand Smoke Exposure: No Smoking Status: Never smoker How Often Do You Have a Drink Containing Alcohol: Monthly or less Recent Travel in [facility] within the Last 8 Weeks: No Recent Out of Country Travel within the Last 8 Weeks: No Immunization History Tetanus Immunization: Unsure Hx Influenza Vaccine This Season: Yes Exam Narrative Exam Narrative: GENERAL: Well-appearing SKIN: Focused skin assessment warm/dry. HEAD: Atraumatic. Normocephalic. EYES: Pupils equal and round 4 mms reactive to light and accommodation. No scleral icterus. No injection or drainage. ENT: No nasal bleeding or discharge. Mucous membranes pink and moist. Tongue is midline. No uvula deviation NECK: Trachea midline. No JVD. CARDIOVASCULAR: Regular rate and rhythm. No murmur appreciated. RESPIRATORY: No accessory muscle use. Clear to auscultation. Breath sounds equal bilaterally. GASTROINTESTINAL: Abdomen soft, non-tender, nondistended. Hepatic and splenic margins not palpable. MUSCULOSKELETAL: No obvious deformities. No clubbing. No cyanosis. No edema. Full range of motion of the upper and lower extremities bilaterally. 2+ pulses bilaterally. Patient does have 4 out of 5 strength on the left leg. Sensation to pain appears to be intact. No obvious lumbar, thoracic, cervical spine tenderness to palpation. Romberg test negative. Finger to nose test negative. NEUROLOGICAL: Awake and alert. No obvious cranial nerve deficits. Motor grossly within normal limits. Normal speech. PSYCHIATRIC: Appropriate mood and affect; insight and judgment normal. Course Initial Documented Vital Signs Pulse Rate 97 H 11/22/17 14:06 Respiratory Rate 18 11/22/17 14:06 Blood Pressure 129/62 11/22/17 14:06 Pulse Oximetry 97 11/22/17 14:06 Last Documented Vital Signs Temperature 98.5 F 11/22/17 14:10 Pulse Rate 92 H 11/22/17 14:10 Respiratory Rate 18 11/22/17 14:10 Blood Pressure 143/107 H 11/22/17 14:10 Pulse Oximetry 100 11/22/17 14:10 Medical Decision Making AVELINO Attestation AVELINO supervised visit: Yes Attestation: I, Dr. Dougherty, have reviewed the advance practice practitioner's documentation and am in agreement, met with the patient face to face, made the diagnosis, and the medical decision making was done by me. *My assessment and Findings: Patient presents after having an episode of slurred speech. Patient's resolved by now. She was not made a stroke alert however will be admitted for possible TIA symptoms. Case was discussed with the admitting physician who is agreeable. MDM Narrative Medical decision making narrative: 42-year-old female that presents to the ED for evaluation of slurred speech. Patient was properly examined and was found to have signs and symptoms of unclear etiology. Symptoms appear to be completely gone now. She does have chronic left-sided weakness for about 3 weakness for which her primary care doctor is already evaluating her for with MRIs of her back. She does have a history of anemia per patient. Labs and imaging were ordered. CT scan of the head was ordered stat. My attending Dr Dougherty was made aware of findings including timing of symptoms and currently asymptomatic and agrees with plan, per Dr Dougherty no stroke alert to be called. CT and labs were essentially unremarkable at this time. Patient does appear to have anemia but her hemoglobin has improved from 8-9. She still has a headache but otherwise no other symptoms. Could be a typical migraine headache house and the symptoms. At this time her condition is for admission for TIA workup. Patient agrees with this. DIANE farias and Dr Carrion agreed to admission. Differential Diagnosis Differential Diagnosis: CVA versus TIA versus a typical headache versus anemia Medical Records Medical records reviewed: Yes I reviewed the patient's medical records. Lab Data Lab results reviewed: Yes I reviewed the patient's lab results. Lab results narrative: troponin and CKMB negative Result diagrams: 11/22/17 14:21 11/22/17 14:21 Lab Results 11/22/17 11/22/17 11/22/17 Range/Units 14:21 14:21 14:21 WBC 6.0 (4.0-11.0) th/mm3 RBC 4.06 (4.00-5.30) mil/mm3 Hgb 9.5 L (11.6-15.3) gm/dL Hct 30.3 L (35.0-46.0) % MCV 74.8 L (80.0-100.0) fL MCH 23.5 L (27.0-34.0) pg MCHC 31.4 L (32.0-36.0) % RDW 17.6 H (11.6-17.2) % Plt Count 373 (150-450) th/mm3 MPV 7.6 (7.0-11.0) fL Neut % (Auto) 50.5 (16.0-70.0) % Lymph % (Auto) 39.8 (9.0-44.0) % Rhea % (Auto) 7.0 (0.0-8.0) % Eos % (Auto) 1.9 (0.0-4.0) % Baso % (Auto) 0.8 (0.0-2.0) % Neut # (Auto) 3.0 (1.8-7.7) th/mm3 Lymph # (Auto) 2.4 (1.0-4.8) th/mm3 Rhea # (Auto) 0.4 (0.0-0.9) th/mm3 Eos # (Auto) 0.1 (0.0-0.4) th/mm3 Baso # (Auto) 0.0 (0.0-0.2) th/mm3 WBC Differential . Differential Comment Auto diff final PT 10.0 (9.8-11.6) sec INR 1.0 Ratio APTT 26.4 (24.3-30.1) sec Sodium 141 (136-145) meq/L Potassium 3.3 L (3.5-5.1) meq/L Chloride 108 H (98-107) meq/L Carbon Dioxide 26.7 (21.0-32.0) meq/L Anion Gap 6 (5-15) meq/L BUN 10 (7-18) mg/dL Creatinine 0.84 (0.50-1.00) mg/dL Estimated GFR 89 (>89) mL/min Random Glucose 86 (74-106) mg/dL Calcium 8.6 (8.5-10.1) mg/dL Total Bilirubin 0.3 (0.2-1.0) mg/dL AST 12 L (15-37) U/L ALT 20 (10-53) U/L Alkaline Phosphatase 94 (45-117) U/L Total Creatine Kinase 142 (26-192) U/L CK-MB (CK-2) 0.7 (0.5-3.6) ng/mL Troponin I Less than 0.02 L (0.02-0.05) ng/mL Total Protein 7.8 (6.4-8.2) g/dL Albumin 3.7 (3.4-5.0) g/dL Blood Type Blood Type Recheck Antibody Screen 11/22/17 Range/Units 14:21 WBC (4.0-11.0) th/mm3 RBC (4.00-5.30) mil/mm3 Hgb (11.6-15.3) gm/dL Hct (35.0-46.0) % MCV (80.0-100.0) fL MCH (27.0-34.0) pg MCHC (32.0-36.0) % RDW (11.6-17.2) % Plt Count (150-450) th/mm3 MPV (7.0-11.0) fL Neut % (Auto) (16.0-70.0) % Lymph % (Auto) (9.0-44.0) % Rhea % (Auto) (0.0-8.0) % Eos % (Auto) (0.0-4.0) % Baso % (Auto) (0.0-2.0) % Neut # (Auto) (1.8-7.7) th/mm3 Lymph # (Auto) (1.0-4.8) th/mm3 Rhea # (Auto) (0.0-0.9) th/mm3 Eos # (Auto) (0.0-0.4) th/mm3 Baso # (Auto) (0.0-0.2) th/mm3 WBC Differential Differential Comment PT (9.8-11.6) sec INR Ratio APTT (24.3-30.1) sec Sodium (136-145) meq/L Potassium (3.5-5.1) meq/L Chloride (98-107) meq/L Carbon Dioxide (21.0-32.0) meq/L Anion Gap (5-15) meq/L BUN (7-18) mg/dL Creatinine (0.50-1.00) mg/dL Estimated GFR (>89) mL/min Random Glucose (74-106) mg/dL Calcium (8.5-10.1) mg/dL Total Bilirubin (0.2-1.0) mg/dL AST (15-37) U/L ALT (10-53) U/L Alkaline Phosphatase (45-117) U/L Total Creatine Kinase (26-192) U/L CK-MB (CK-2) (0.5-3.6) ng/mL Troponin I (0.02-0.05) ng/mL Total Protein (6.4-8.2) g/dL Albumin (3.4-5.0) g/dL Blood Type O Positive Blood Type Recheck Required Antibody Screen Negative Imaging Data Attestation: I personally reviewed and interpreted this imaging study as follows : Radiologist's impression: Chest X-Ray 11/22/17 14:15 CONCLUSION: No acute cardiopulmonary disease. Head CT 11/22/17 14:15 CONCLUSION: 1. Negative noncontrast head CT. . Discharge Plan Discharge Disposition Patient Disposition: 30 Still Patient Discharge Details Diagnosis: Transient cerebral ischemia Physicians Team ED Provider: Sky Dougherty ED Midlevel Provider: Christian Wooten Primary Care Provider: Malcom Hayes Attending Provider: Christian Wooten Status ED Status: Admitted Observation Patient
[2017-11-22 15:29] LABS: Activated Partial Thrombo Time 26.4 sec (24.3-30.1)
[2017-11-22 15:31] LABS: Albumin 3.7 g/dL (3.4-5.0); Anion Gap 6 meq/L (5-15); Aspartate Aminotransferase 12 U/L (15-37); Blood Urea Nitrogen 10 mg/dL (7-18); Calcium 8.6 mg/dL (8.5-10.1); Carbon Dioxide 26.7 meq/L (21.0-32.0); Chloride 108 meq/L (98-107); Glomerular Filtration Rate 89 mL/min (>89); Glucose,Random 86 mg/dL (74-106); Potassium 3.3 meq/L (3.5-5.1); Sodium 141 meq/L (136-145)
[2017-11-22 15:36] LABS: Alanine Aminotransferase 20 U/L (10-53); Alkaline Phosphatase 94 U/L (45-117); Creatine Kinase 142 U/L (26-192); Total Protein 7.8 g/dL (6.4-8.2)
[2017-11-22 15:49] LABS: Creatine Kinase MB 0.7 ng/mL (0.5-3.6)
[2017-11-22] MEDS ORDERED: Bisacodyl 10 MG Supp RECTAL PRN (16:17)
[2017-11-22] MEDS ORDERED: Gadobutrol PF 7.5 MMOL/7.5 ML Vial (for RAD) IV.SIG ONE (16:31)
--- NOTE | 2017-11-22 17:02 | P.HP ---
History of Present Illness Service: Hospitalist Primary Care Physician: Malcom Hayes DO Chief Complaint: Slurred speech History of Present Illness: Ms. Cohen is a very pleasant 42-year-old -[place] female with a history of scoliosis, degenerative disc disease who presented to the emergency department on 11/22/2017 due to slurred speech. Patient works at [employer] where she felt somewhat dizzy, blurred vision at around 9:00 AM. She could not express her thoughts. 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 Subsequently she was evaluated by EMS. Her initial blood sugar was 50 and repeat blood sugar was 90s. Blood pressure was 159/107. She reported no other focal neurological deficits. She did have some neck pain when she bends her neck. She also has lower extremity numbness that is chronic. She is being worked up by her primary care physician with regards to lower extremity numbness. At the time of this interview, patient reports resolution of her dysarthria. She continues to have lower extremity numbness. No chest pain, shortness of breath, fever or chills. No changes in bowel or bladder habits. - Diagnosis (1) Transient cerebral ischemia Review of Systems All other systems reviewed negative except as stated in HPI [facility] - History History Provided By: Patient - Medical History Medical History: Medical History (Last Reviewed 11/22/17 @ 15:14 by MAI Dacosta) Degeneration of intervertebral disc, site unspecified Hypertension - Tobacco History Second Hand Smoke Exposure: No Tobacco Use In Past 30 Days: No Smoking Status: Never smoker - Alcohol History How Often Do You Have a Drink Containing Alcohol: Monthly or less - Substance Use History Substance History: No History of Abuse - Travel History Recent Travel in the [place] Within the Last 8 Weeks: No Recent Travel Out of the Country Within the Last 8 Weeks: No - Immunization History Tetanus Immunization: Unsure Hx Influenza Vaccine This Season: Yes Medications and Allergies Active Medications: Active Medications Acetaminophen (Tylenol) 650 mg PO Q4H PRN PRN Reason: Headache, fever, pain 1-4 Al Hydroxide/Mg Hydroxide (Milk Of Magnesia Liq) 30 ml PO Q12H PRN PRN Reason: Mild Constipation Aspirin (Ecotrin) 81 mg PO DAILY SHAR Bisacodyl (Dulcolax Supp) 10 mg RECTAL DAILY PRN PRN Reason: SEVERE CONSITIPATION Enoxaparin Sodium (Lovenox Inj) 40 mg SQ Q24H SHAR Lactulose (Lactulose Liq) 30 ml PO DAILY PRN PRN Reason: SEVERE CONSITIPATION Sennosides (Senokot) 17.2 mg PO Q12H PRN PRN Reason: Moderate Constipation Allergies Allergy/AdvReac Type Severity Reaction Status Date / Time No Known Allergies Allergy Verified 11/22/17 14:16 Home Medications Medication Instructions Recorded Confirmed Type celecoxib 200 mg PO BID 11/22/17 11/22/17 History megestrol 40 mg PO DAILY 11/22/17 11/22/17 History meloxicam 15 mg PO DAILY 11/22/17 11/22/17 History triamterene-hydrochlorothiazid 1 cap PO DAILY 11/22/17 11/22/17 History Exam Vital signs: Vital Signs 11/22/17 14:06 11/22/17 14:10 Temperature 98.5 F Pulse Rate 97 H 92 H Respiratory Rate 18 18 Blood Pressure 129/62 143/107 H Pulse Oximetry 97 100 Intake & Output 11/21/17 11/22/17 11/22/17 18:59 06:59 18:59 Weight 86.183 kg Narrative: GENERAL: This is a well-nourished, well-developed patient, in no apparent distress. SKIN: No rashes, ecchymoses or lesions. Warm and dry. HEAD: Atraumatic. Normocephalic. No temporal or scalp tenderness. EYES: Pupils equal round and reactive. No injection or drainage. ENT: Nose without bleeding, purulent drainage or septal hematoma. Airway patent. NECK: Trachea midline. No lymphadenopathy. Supple, nontender, no meningeal signs. CARDIOVASCULAR: Regular rate and rhythm without murmurs, gallops, or rubs. No JVD. RESPIRATORY: Clear to auscultation. Breath sounds equal bilaterally. No wheezes , rales, or rhonchi. GASTROINTESTINAL: Abdomen soft, non-tender, nondistended. No guarding. MUSCULOSKELETAL: Extremities without clubbing, cyanosis, or edema. NEUROLOGICAL: Awake and alert. Cranial nerves II through XII intact. No focal neurological deficits. Normal speech. Results - Labs CBC & Chem 7: 11/22/17 14:21 11/22/17 14:21 Labs: Laboratory Results - last 24 hr 11/22/17 11/22/1718 14:21 14:21 14:21 WBC 6.0 RBC 4.06 Hgb 9.5 L Hct 30.3 L MCV 74.8 L MCH 23.5 L MCHC 31.4 L RDW 17.6 H Plt Count 373 MPV 7.6 Neut % (Auto) 50.5 Lymph % (Auto) 39.8 [place] % (Auto) 7.0 Eos % (Auto) 1.9 Baso % (Auto) 0.8 Neut # (Auto) 3.0 Lymph # (Auto) 2.4 [place] # (Auto) 0.4 Eos # (Auto) 0.1 Baso # (Auto) 0.0 WBC Differential . Differential Comment Auto diff final PT 10.0 INR 1.0 APTT 26.4 Sodium 141 Potassium 3.3 L Chloride 108 H Carbon Dioxide 26.7 Anion Gap 6 BUN 10 Creatinine 0.84 Estimated GFR 89 Random Glucose 86 Calcium 8.6 Total Bilirubin 0.3 AST 12 L ALT 20 Alkaline Phosphatase 94 Total Creatine Kinase 142 CK-MB (CK-2) 0.7 Troponin I Less than 0.02 L Total Protein 7.8 Albumin 3.7 Blood Type Blood Type Recheck Antibody Screen 11/22/17 14:21 WBC RBC Hgb Hct MCV MCH MCHC RDW Plt Count MPV Neut % (Auto) Lymph % (Auto) [place] % (Auto) Eos % (Auto) Baso % (Auto) Neut # (Auto) Lymph # (Auto) [place] # (Auto) Eos # (Auto) Baso # (Auto) WBC Differential Differential Comment PT INR APTT Sodium Potassium Chloride Carbon Dioxide Anion Gap BUN Creatinine Estimated GFR Random Glucose Calcium Total Bilirubin AST ALT Alkaline Phosphatase Total Creatine Kinase CK-MB (CK-2) Troponin I Total Protein Albumin Blood Type O Positive Blood Type Recheck Required Antibody Screen Negative - Imaging Impressions Chest X-Ray 11/22/17 14:15 CONCLUSION: No acute cardiopulmonary disease. Head CT 11/22/17 14:15 CONCLUSION: 1. Negative noncontrast head CT. . Caprini VTE Risk Assessment Caprini VTE Risk Assessment: No/Low Risk (score <= 1) Caprini Risk Assessment Model: Point Value = 1 Point Value = 2 Point Value = 3 Point Value = 5 Age 41-60 Minor surgery BMI > 25 kg/m2 Swollen legs Varicose veins or History of unexplained or recurrent spontaneous Oral contraceptives or hormone replacement Sepsis (< 1 month) Serious lung disease, including pneumonia (< 1 month) Abnormal pulmonary function Acute myocardial infarction Congestive heart failure (< 1 month) History of inflammatory bowel disease Medical patient at bed rest Age 61-74 Arthroscopic surgery Major open surgery (> 45 min) Laparoscopic surgery (> 45 min) Malignancy Confined to bed (> 72 hours) Immobilizing plaster cast Central venous access Age >= 75 History of VTE Family history of VTE Factor V Leiden Prothrombin [id number] Lupus anticoagulant Anticardiolipin antibodies Elevated serum homocysteine Heparin-induced thrombocytopenia Other congenital or acquired thrombophilia Stroke (< 1 month) Elective arthroplasty Hip, pelvis, or leg fracture Acute spinal cord injury (< 1 month) Prophylaxis Regimen: Total Risk Factor Score Risk Level Prophylaxis Regimen 0-1 Low Early ambulation 2 Moderate Order ONE of the following: *Sequential Compression Device (SCD) *Heparin 5000 units SQ BID 3-4 Higher Order ONE of the following medications: *Heparin 5000 units SQ TID *Enoxaparin/Lovenox 40 mg SQ daily (WT < 150 kg, CrCl > 30 mL/min) *Enoxaparin/Lovenox 30 mg SQ daily (WT < 150 kg, CrCl > 10-29 mL/min) *Enoxaparin/Lovenox 30 mg SQ BID (WT < 150 kg, CrCl > 30 mL/min) AND/OR *Sequential Compression Device (SCD) 5 or more Highest Order ONE of the following medications: *Heparin 5000 units SQ TID (Preferred with Epidurals) *Enoxaparin/Lovenox 40 mg SQ daily (WT < 150 kg, CrCl > 30 mL/min) *Enoxaparin/Lovenox 30 mg SQ daily (WT < 150 kg, CrCl > 10-29 mL/min) *Enoxaparin/Lovenox 30 mg SQ BID (WT < 150 kg, CrCl > 30 mL/min) AND *Sequential Compression Device (SCD) Assessment and Plan - Assessment (1) Transient cerebral ischemia Code(s): G45.9 - Transient cerebral ischemic attack, unspecified Status: Acute - Plan Ms. Cohen is a very pleasant 42-year-old -[place] female with a history of scoliosis, lower extremity numbness who presents to the emergency department due to dysarthria experienced at work on 9 AM on 11/22/2017. Probable transient ischemic attack -Head CT unremarkable for any acute findings. -Keep patient on telemetry. -Patient will likely need MRI studies. -Aspirin 81 mg daily. Will get Lipid profile in the AM. Will also obtain Carotid US. Chronic bilateral lower extremity numbness -Patient is being worked up in the outpatient setting by her primary care physician. -She will likely need neurology evaluation as well. -To evaluate both TIA and lower extremity numbness, will consult neurology. -Further imaging studies per neurology. Full code. Jeramy. (1) Transient cerebral ischemia Qualifiers: Transient cerebral ischemia type: unspecified Qualified Code(s): G45.9 - Transient cerebral ischemic attack, unspecified
[2017-11-22] MEDS: Acetaminophen 325 MG Tablet PO PRN (18:07)
[2017-11-22] MEDS: Enoxaparin Inj 40 MG/0.4 ML Syringe SQ SCH (18:07)
[2017-11-23 04:31] LABS: Bilirubin,Urine Negative (Negative); Clarity,Urine Hazy (Clear); Color,Urine Yellow (Yellw/Straw); Glucose,Urine (UA) Negative (Negative); Leukocyte Esterase,Urine Negative (Negative); Mucus,Urine Few /lpf (Occasional); Nitrite,Urine Negative (Negative); Specific Gravity,Urine 1.011 (1.002-1.035); Squamous Epithelial Cell,Urine 2 /hpf (0-5)
[2017-11-23] MEDS: Acetaminophen 325 MG Tablet PO PRN (08:04)
[2017-11-23 08:28] LABS: Chol/HDL Ratio 3.26 Ratio; HDL Cholesterol 51.7 mg/dL (40.0-60.0)
--- NOTE | 2017-11-23 09:28 | US ---
EXAM DATE: 11/23/2017 9:24 AM EDT AGE/SEX: 42 years / Female INDICATIONS: Cerebrovascular accident. Altered mental status and dysphasia. CLINICAL DATA: This is the patient's initial encounter. Patient reports that signs and symptoms have been present for 1 day and indicates a pain score of 4/10. MEDICAL/SURGICAL HISTORY: Hypertension. Degeneration of intervertebral disc. None. COMPARISON: No prior exams available for comparison. VELOCITY PARAMETERS: ICA/CCA Ratio: Right 1.0 , Left 0.9 ICA: Right 78 cm/sec, Left 97 cm/sec CCA: Right 81 cm/sec, Left 102 cm/sec ECA: Right 47 cm/sec, Left 66 cm/sec Vertebral: Right 44 cm/sec antegrade, Left 48 cm/sec antegrade FINDINGS: Right Carotid: No significant plaque is visualized.The waveforms are within normal limits. Left Carotid: No significant plaque is visualized. The waveforms are within normal limits. Other: There is a round cystic structure in the right lower lobe of the thyroid measuring up to 1.2 x 1 x 1.1 cm. There is more complex heterogeneous nodule in the upper pole the left lobe measuring 9 x 7 x 9 mm. This demonstrated peripheral color flow. CONCLUSION: 1. The carotid arteries are patent bilaterally. 2. Bilateral incidental thyroid lesions noted. These could be further evaluated outpatient thyroid u ltrasound. Electronically signed by: Paul Ricardo MD 11/23/2017 9:27 AM EDT
--- NOTE | 2017-11-23 09:46 | P.PN ---
Subjective Interval history: Follow-up slurred speech. Intermittent expressive aphasia no other complaints. Tearful Physical Exam Vital signs: Vital Signs 11/22/17 14:06 11/22/17 14:10 11/22/17 19:33 Temperature 98.5 F 99.0 F Pulse Rate 97 H 92 H 87 Respiratory Rate 18 18 16 Blood Pressure 129/62 143/107 H 128/75 Pulse Oximetry 97 100 97 11/22/17 23:03 11/23/17 00:00 11/23/17 04:00 Temperature 98.3 F 98.2 F Pulse Rate 88 78 Respiratory Rate 16 16 Blood Pressure 125/74 128/75 Pulse Oximetry 97 100 100 11/23/17 07:30 Temperature 98.8 F Pulse Rate 80 Respiratory Rate 16 Blood Pressure 130/77 Pulse Oximetry 100 Intake & Output 11/22/17 11/23/17 11/23/17 18:59 06:59 18:59 Intake Total 600 / 600 Balance 600 / 600 Weight 86.183 kg Intake: Oral 240 / 240 Other 360 / 360 Other: # Voids 2 Weight On Admission 86.183 kg Narrative: GENERAL: This is a well-nourished, well-developed patient, in no apparent distress. SKIN: No rashes, ecchymoses or lesions. Warm and dry. CARDIOVASCULAR: Regular rate and rhythm without murmurs, gallops, or rubs. No JVD. RESPIRATORY: Clear to auscultation. Breath sounds equal bilaterally. No wheezes , rales, or rhonchi. GASTROINTESTINAL: Abdomen soft, non-tender, nondistended. No guarding. MUSCULOSKELETAL: Extremities without clubbing, cyanosis, or edema. NEUROLOGICAL: Awake and alert. Cranial nerves II through XII intact. No focal neurological deficits. Normal speech. Results - Labs CBC & Chem 7: 11/22/17 14:21 11/23/17 06:49 Laboratory Results - last 24 hr 11/22/17 11/22/17 11/22/17 14:21 14:21 14:21 WBC 6.0 RBC 4.06 Hgb 9.5 L Hct 30.3 L MCV 74.8 L MCH 23.5 L MCHC 31.4 L RDW 17.6 H Plt Count 373 MPV 7.6 Neut % (Auto) 50.5 Lymph % (Auto) 39.8 [place] % (Auto) 7.0 Eos % (Auto) 1.9 Baso % (Auto) 0.8 Neut # (Auto) 3.0 Lymph # (Auto) 2.4 [place] # (Auto) 0.4 Eos # (Auto) 0.1 Baso # (Auto) 0.0 WBC Differential . Differential Comment Auto diff final PT 10.0 INR 1.0 APTT 26.4 Sodium 141 Potassium 3.3 L Chloride 108 H Carbon Dioxide 26.7 Anion Gap 6 BUN 10 Creatinine 0.84 Estimated GFR 89 Random Glucose 86 Calcium 8.6 Total Bilirubin 0.3 AST 12 L ALT 20 Alkaline Phosphatase 94 Total Creatine Kinase 142 CK-MB (CK-2) 0.7 Troponin I Less than 0.02 L Total Protein 7.8 Albumin 3.7 Triglycerides Cholesterol LDL Cholesterol, Calc HDL Cholesterol Cholesterol/HDL Ratio Urine Color Urine Clarity Urine pH Ur Specific [place] Urine Protein Urine Glucose (UA) Urine Ketones Urine Occult Blood Urine Nitrate Urine Bilirubin Urine Urobilinogen Ur Leukocyte Esterase Urine RBC Urine WBC Ur Squamous Epith Cells Urine Mucus Micro UA Comment Urine Culture Comments Blood Type Blood Type Recheck Antibody Screen 11/22/17 11/23/17 11/23/17 14:21 04:03 06:49 WBC RBC Hgb Hct MCV MCH MCHC RDW Plt Count MPV Neut % (Auto) Lymph % (Auto) [place] % (Auto) Eos % (Auto) Baso % (Auto) Neut # (Auto) Lymph # (Auto) [place] # (Auto) Eos # (Auto) Baso # (Auto) WBC Differential Differential Comment PT INR APTT Sodium Potassium Chloride Carbon Dioxide Anion Gap BUN Creatinine Estimated GFR Random Glucose Calcium Total Bilirubin AST ALT Alkaline Phosphatase Total Creatine Kinase CK-MB (CK-2) Troponin I Total Protein Albumin Triglycerides 68 Cholesterol 169 LDL Cholesterol, Calc 104 H HDL Cholesterol 51.7 Cholesterol/HDL Ratio 3.26 Urine Color Yellow Urine Clarity Hazy H Urine pH 6.0 Ur Specific [place] 1.011 Urine Protein Negative Urine Glucose (UA) Negative Urine Ketones Negative Urine Occult Blood Moderate H Urine Nitrate Negative Urine Bilirubin Negative Urine Urobilinogen Less than 2 Ur Leukocyte Esterase Negative Urine RBC 1 Urine WBC 1 Ur Squamous Epith Cells 2 Urine Mucus Few H Micro UA Comment Culture not ind Urine Culture Comments Culture not ind Blood Type O Positive Blood Type Recheck Required Antibody Screen Negative - Imaging Impressions Chest X-Ray 11/22/17 14:15 CONCLUSION: No acute cardiopulmonary disease. Head CT 11/22/17 14:15 CONCLUSION: 1. Negative noncontrast head CT. . Carotid Doppler Study 11/23/17 00:00 CONCLUSION: 1. The carotid arteries are patent bilaterally. 2. Bilateral incidental thyroid lesions noted. These could be further evaluated outpatient thyroid ultrasound. - Procedures none Assessment and Plan - Assessment (1) Transient cerebral ischemia Code(s): G45.9 - Transient cerebral ischemic attack, unspecified Status: Acute - Plan Ms. Cohen is a very pleasant 42-year-old -[place] female with a history of scoliosis, lower extremity numbness who presents to the emergency department due to dysarthria experienced at work on 9 AM on 11/22/2017. Probable transient ischemic attack. Questionable hypoglycemia -Head CT unremarkable for any acute findings. -Keep patient on telemetry. -Aspirin 81 mg daily. LDL 104 agrees with statin. Unremarkable Carotid US. Pending neuro consult. Order ECHO and UDS. Monitor for hypoglycemia check A1c Chronic bilateral lower extremity numbness -Patient is being worked up in the outpatient setting by her primary care physician. -She will likely need neurology evaluation as well. -To evaluate both TIA and lower extremity numbness, will consult neurology. -Further imaging studies per neurology. Hypokalemia on diuretics. Repeat BMP and mag today. Full code. Lovenox. Discharge Planning: dc in 1-2 days pending stroke w/u (1) Transient cerebral ischemia Qualifiers: Transient cerebral ischemia type: unspecified Qualified Code(s): G45.9 - Transient cerebral ischemic attack, unspecified
[2017-11-23] MEDS ORDERED: Dextrose 50% in Water 50 ML Vial IV.PUSH PRN (09:51)
[2017-11-23 10:52] LABS: Calcium 8.1 mg/dL (8.5-10.1); Carbon Dioxide 23.4 meq/L (21.0-32.0); Magnesium 1.8 mg/dL (1.5-2.5); Potassium 3.4 meq/L (3.5-5.1)
--- NOTE | 2017-11-23 10:57 | ECG ---
Date Performed: 11/22/2017 Time Performed: 16:56:30 PTAGE: 42 years EKG: Sinus rhythm MODERATE VOLTAGE CRITERIA FOR LVH, CONSIDER NORMAL VARIANT BORDERLINE ECG PREVIOUS TRACING : 06/22/2017 10.31 DOCTOR: Eugenio Delgado Interpretating Date/Time 11/23/2017 10:56:03
[2017-11-23] MEDS: Pregabalin 25 MG Capsule PO SCH ×2 (13:09→17:16)
[2017-11-23 13:46] LABS: Amphetamine Screen,Urine Neg (Neg); Barbiturate Screen,Urine Neg (Neg); Cannabinoid Screen,Urine Neg (Neg); Cocaine Screen,Urine Neg (Neg); Opiate Screen,Urine Neg (Neg)
--- NOTE | 2017-11-23 16:12 | P.CONNEU ---
History of Present Illness Service: Neurology Primary Care Provider: Malcom Hayes DO Family Provider: Malcom Hayes DO Chief Complaint: Slurred speech History of Present Illness: Pleasant 42-year-old female admitted for possible TIA. She workout facility when she felt really lightheaded had difficulty with speech slightly slurred she states. Apparently her blood sugar was found to be in the 50s. No known history of diabetes. States that she did not have breakfast that morning. No focal weakness no headache no visual loss. Speech symptoms have resolved she feels well at present. History of right neck pain in addition to lower back pain with a history of left thigh numbness. She apparently seen pain management received epidural steroid injection for this with limited relief. States get a mother with a history of cerebral aneurysm. Review of Systems All other systems reviewed negative except as stated in HPI [facility] - History History Provided By: Patient - Medical History Medical History: Medical History (Last Reviewed 11/22/17 @ 15:14 by MAI Dacosta) Degeneration of intervertebral disc, site unspecified Hypertension - Tobacco History Second Hand Smoke Exposure: No Tobacco Use In Past 30 Days: No Smoking Status: Never smoker - Alcohol History How Often Do You Have a Drink Containing Alcohol: Monthly or less - Substance Use History Substance History: No History of Abuse - Travel History Recent Travel in the [place] Within the Last 8 Weeks: No Recent Travel Out of the Country Within the Last 8 Weeks: No - Immunization History Tetanus Immunization: Unsure Hx Influenza Vaccine This Season: Yes Medications and Allergies Active Medications: Active Medications Acetaminophen (Tylenol) 650 mg PO Q4H PRN PRN Reason: Headache, fever, pain 1-4 Last Admin: 11/23/17 08:04 Dose: 650 mg Al Hydroxide/Mg Hydroxide (Milk Of Magnbrittni Liq) 30 ml PO Q12H PRN PRN Reason: Mild Constipation Aspirin (Ecotrin) 81 mg PO DAILY [facility] Last Admin: 11/23/17 08:03 Dose: 81 mg Bisacodyl (Dulcolax Supp) 10 mg RECTAL DAILY PRN PRN Reason: SEVERE CONSITIPATION Dextrose (D50w Vial) 50 ml IV.PUSH UNSCH PRN PRN Reason: PER HYPOGLYCEMIA PROTOCOL Enoxaparin Sodium (Lovenox Inj) 40 mg SQ Q24H [facility] Last Admin: 11/22/17 18:07 Dose: 40 mg Glucagon (Glucagon Inj) 1 mg OTHER PRN PRN PRN Reason: for Hypoglycemia Protocol Lactulose (Lactulose Liq) 30 ml PO DAILY PRN PRN Reason: SEVERE CONSITIPATION Pregabalin (Lyrica) 50 mg PO TID SHAR Last Admin: 11/23/17 13:09 Dose: 50 mg Sennosides (Senokot) 17.2 mg PO Q12H PRN PRN Reason: Moderate Constipation Allergies Allergy/AdvReac Type Severity Reaction Status Date / Time No Known Allergies Allergy Verified 11/22/17 14:16 Home Medications Medication Instructions Recorded Confirmed Type megestrol 40 mg PO BID 11/22/17 11/22/17 History pregabalin [Lyrica] 50 mg PO TID 11/22/17 11/22/17 History triamterene-hydrochlorothiazid 1 cap PO DAILY 11/22/17 11/22/17 History Exam Vital signs: Vital Signs 11/22/17 19:33 11/22/17 23:03 11/23/17 00:00 Temperature 99.0 F 98.3 F Pulse Rate 87 88 Respiratory Rate 16 16 Blood Pressure 128/75 125/74 Pulse Oximetry 97 97 100 11/23/17 04:00 11/23/17 07:30 11/23/17 09:00 Temperature 98.2 F 98.8 F Pulse Rate 78 80 79 Respiratory Rate 16 16 Blood Pressure 128/75 130/77 Pulse Oximetry 100 100 11/23/17 12:00 Temperature 98.8 F Pulse Rate 95 H Respiratory Rate 16 Blood Pressure 120/71 Pulse Oximetry 100 Intake & Output 11/22/17 11/23/17 11/23/17 18:59 06:59 18:59 Intake Total 600 / 600 Balance 600 / 600 Weight 86.183 kg Intake: Oral 240 / 240 Other 360 / 360 Other: # Voids 2 Weight On Admission 86.183 kg Narrative: GENERAL: Well nourished patient, in no apparent distress. SKIN: Warm and dry. HEAD: Atraumatic. Normocephalic. EYES: Pupils equal and round. No scleral icterus. No injection or drainage. ENT: Nose without drainage. NECK: Trachea midline. Neck is supple. CARDIOVASCULAR: Normal rate and regular rhythm RESPIRATORY: Symmetric, unlabored respirations. GASTROINTESTINAL: Abdomen soft, non-tender, non-distended. NEUROLOGICAL: Awake alert oriented 3 fluent articulate no aphasia. Extraocular movements intact no facial asymmetry tongue midline able raise all 4 extremity gravity for greater than 5 seconds reflexes 2+ + symmetric plantarflex response no clonus gait not assessed secondary to fall risk - Constitutional no acute distress - Routine HEENT Exam Head: Present: normocephalic Eye: Present: EOMI - Routine Neck Exam Present: supple Results - Labs CBC & Chem 7: 11/22/17 14:21 11/23/17 06:49 Labs: Laboratory Results - last 24 hr 11/23/17 11/23/17 11/23/17 04:03 06:49 10:23 Sodium 142 Potassium 3.4 L Chloride 108 H Carbon Dioxide 23.4 Anion Gap 11 BUN 11 Creatinine 0.90 Estimated GFR 82 L POC Glucose Random Glucose 100 Calcium 8.1 L Magnesium 1.8 Triglycerides 68 Cholesterol 169 LDL Cholesterol, Calc 104 H HDL Cholesterol 51.7 Cholesterol/HDL Ratio 3.26 Urine Color Yellow Urine Clarity Hazy H Urine pH 6.0 Ur Specific [place] 1.011 Urine Protein Negative Urine Glucose (UA) Negative Urine Ketones Negative Urine Occult Blood Moderate H Urine Nitrate Negative Urine Bilirubin Negative Urine Urobilinogen Less than 2 Ur Leukocyte Esterase Negative Urine RBC 1 Urine WBC 1 Ur Squamous Epith Cells 2 Urine Mucus Few H Micro UA Comment Culture not ind Urine Culture Comments Culture not ind Urine Opiates Screen Neg Ur Barbiturates Screen Neg Ur Amphetamines Screen Neg U Benzodiazepines Scrn Neg Urine Cocaine Screen Neg U Cannabinoids Screen Neg 11/23/17 11/23/17 12:07 13:08 Sodium Potassium Chloride Carbon Dioxide Anion Gap BUN Creatinine Estimated GFR POC Glucose 150 H 118 H Random Glucose Calcium Magnesium Triglycerides Cholesterol LDL Cholesterol, Calc HDL Cholesterol Cholesterol/HDL Ratio Urine Color Urine Clarity Urine pH Ur Specific [place] Urine Protein Urine Glucose (UA) Urine Ketones Urine Occult Blood Urine Nitrate Urine Bilirubin Urine Urobilinogen Ur Leukocyte Esterase Urine RBC Urine WBC Ur Squamous Epith Cells Urine Mucus Micro UA Comment Urine Culture Comments Urine Opiates Screen Ur Barbiturates Screen Ur Amphetamines Screen U Benzodiazepines Scrn Urine Cocaine Screen U Cannabinoids Screen - Imaging Impressions Carotid Doppler Study 11/23/17 00:00 CONCLUSION: 1. The carotid arteries are patent bilaterally. 2. Bilateral incidental thyroid lesions noted. These could be further evaluated outpatient thyroid ultrasound. Review/Management - Diagnosis (1) Cervical spondylosis Code(s): M47.812 - Spondylosis without myelopathy or radiculopathy, cervical region Status: Acute Current Visit: Yes (2) Lumbar spondylosis Code(s): M47.816 - Spondylosis without myelopathy or radiculopathy, lumbar region Status: Acute Current Visit: Yes (3) Transient cerebral ischemia Code(s): G45.9 - Transient cerebral ischemic attack, unspecified Status: Acute Current Visit: Yes - Review/Management Plan: TIA versus hypoglycemic related event Exclude any myelopathy or demyelinating disease with a history of left leg numbness although may be related to radiculopathy Also with history of scoliosis Recommendations Follow-up neuroimaging Aspirin 81 mg PT evaluation Statin for LDL less than 100 Blood pressure control, weight loss, exercise Evaluate for any endocrinopathy, diabetes per medical Follow exam (3) Transient cerebral ischemia Qualifiers: Transient cerebral ischemia type: unspecified Qualified Code(s): G45.9 - Transient cerebral ischemic attack, unspecified
[2017-11-23] MEDS: Enoxaparin Inj 40 MG/0.4 ML Syringe SQ SCH (16:24)
[2017-11-23] MEDS: Sod Chloride 0.9% Inj 1,000 ML IV.CONT SCH (17:17)
--- NOTE | 2017-11-23 18:13 | MR ---
EXAM DATE: 11/23/2017 5:57 PM EDT AGE/SEX: 42 years / Female INDICATIONS: Gait disorder. CLINICAL DATA: This is the patient's initial encounter. Patient reports that signs and symptoms have been present for 1 day and indicates a pain score of 9/10. MEDICAL/SURGICAL HISTORY: Hypertension. None. COMPARISON: [facility] – [place], MR CERVICAL SPINE W/O CONTRAST, 11/23/2017. . TECHNIQUE: Multiplanar, multisequence MRI of the thoracic spine was performed. FINDINGS: Vertebrae: Normal vertebral body height. Homogeneous marrow signal. Alignment: The thoracic vertebral bodies are normally aligned in the sagittal plane. There is a levo curvature of the lower thoracic spine. Cord: Normal position and configuration. T1-T2: The thecal sac has a normal diameter. No evidence of disc bulge or protrusion. T2-T3: The thecal sac has a normal diameter. No evidence of disc bulge or protrusion. T3-T4: The thecal sac has a normal diameter. No evidence of disc bulge or protrusion. T4-T5: The thecal sac has a normal diameter. No evidence of disc bulge or protrusion. T5-T6: The thecal sac has a normal diameter. No evidence of disc bulge or protrusion. T6-T7: The thecal sac has a normal diameter. No evidence of disc bulge or protrusion. T7-T8: The thecal sac has a normal diameter. No evidence of disc bulge or protrusion. T8-T9: The thecal sac has a normal diameter. No evidence of disc bulge or protrusion. T9-T10: The thecal sac has a normal diameter. No evidence of disc bulge or protrusion. T10-T11: The thecal sac has a normal diameter. No evidence of disc bulge or protrusion. T11-T12: The thecal sac has a normal diameter. No evidence of disc bulge or protrusion. T12-L1: The thecal sac has a normal diameter. No evidence of disc bulge or protrusion. CONCLUSION: Negative thoracic spine MRI examination. There is a levocurvature of the lower thoracic spine. Electronically signed by: Michael Reese MD 11/23/2017 6:12 PM EDT
--- NOTE | 2017-11-23 18:23 | MR ---
EXAM DATE: 11/23/2017 6:03 PM EDT AGE/SEX: 42 years / Female INDICATIONS: Gait disorder. CLINICAL DATA: This is the patient's initial encounter. Patient reports that signs and symptoms have been present for 1 day and indicates a pain score of 7/10. MEDICAL/SURGICAL HISTORY: Hypertension. None. COMPARISON: No prior exams available for comparison. TECHNIQUE: Multiplanar, multisequence MRI of the lumbar spine was performed without contrast. Patie nt was scanned in a sitting position; neutral, flexion, and extension scans were performed in the sa gittal plane. FINDINGS: Vertebra: Homogeneous signal. Normal alignment. Conus: Normal level and configuration. There is 2.5 cm right renal cyst. There is a cystic area seen in the left adnexa. This is incompletel y evaluated. T12-L1: The thecal sac has a normal diameter. No evidence of disc bulge or protrusion. The neural foramina are patent bilaterally. L1-L2: The thecal sac has a normal diameter. No evidence of disc bulge or protrusion. The neural foramina are patent bilaterally. There is mild facet hypertrophy. L2-L3: The thecal sac has a normal diameter. No evidence of disc bulge or protrusion. The neural foramina are patent bilaterally. L3-L4: The disc demonstrates mild decreased height. There is an area of increased signal seen withi n the left neural foramina obscuring the exiting L3 nerve root. This is likely related to either an e xtruded disc fragment versus an underlying mass such as a nerve sheath tumor. The right neural forami na is normal. The thecal sac is normal. The facet joints are normal. L4-L5: The thecal sac has a normal diameter. No evidence of disc bulge or protrusion. The neural foramina are patent bilaterally. There is mild facet hypertrophy. L5-S1: The thecal sac has a normal diameter. No evidence of disc bulge or protrusion. The neural foramina are patent bilaterally. There is mild facet hypertrophy. CONCLUSION: 1. Increased signal within the left neural foramina at the L3-L4 level caused by a left neural mohamud inal disc protrusion versus an underlying mass such as a nerve sheath tumor. This can be further eval uated with intravenous contrast at some point. 2. Scattered facet hypertrophy. Electronically signed by: Michael Reese MD 11/23/2017 6:22 PM EDT
--- NOTE | 2017-11-23 18:26 | MR ---
EXAM DATE: 11/23/2017 6:16 PM EDT AGE/SEX: 42 years / Female INDICATIONS: Gait disorder. CLINICAL DATA: This is the patient's initial encounter. Patient reports that signs and symptoms have been present for 1 day and indicates a pain score of 7/10. MEDICAL/SURGICAL HISTORY: Hypertension. None. COMPARISON: [facility] – [place], MR THORACIC SPINE W/O CONTRAST, 11/23/2017. . TECHNIQUE: Multiplanar, multisequence MRI examination of the cervical spine was performed without co ntrast. FINDINGS: Vertebrae: Normal vertebral body height. Homogeneous marrow signal. Alignment: Normal. Cord: Normal configuration and signal. Post Fossa: The cerebellar tonsils are normal in position. Bilateral thyroid nodules are seen. C2-C3: The thecal sac has a normal configuration. There is no evidence of disc herniation or spinal canal stenosis. The neural foramina are patent bilaterally. C3-C4: The thecal sac has a normal configuration. There is no evidence of disc herniation or spinal canal stenosis. The neural foramina are patent bilaterally. C4-C5: There is a moderate central disc protrusion with a component that is superiorly extruded post erior to the C4 vertebral body. This causes a moderate impression on the anterior aspect of the cord. Minimal CSF seen around the cord at this level. The neural foramina are patent bilaterally. C5-C6: The distance is decreased signal. There is a bulging being worse on the right. This causes a mild impression on thecal sac. There continues be CSF around the cord best seen on the sagittal image s. The neural foramina are patent bilaterally. C6-C7: There is minimal disc bulge without significant stenosis. The neural foramina are patent bila terally. C7-T1: No epidural impressions seen. CONCLUSION: 1. Moderate central disc protrusion at the C4-C5 level. There is a component that is superiorly extr uded posterior to the C4 vertebral body. 2. Mild bulging at the C5-C6 and to a lesser degree, the C6-C7 level. Electronically signed by: Michael Reese MD 11/23/2017 6:25 PM EDT
--- NOTE | 2017-11-23 19:22 | MR ---
EXAM DATE: 11/23/2017 7:16 PM EDT AGE/SEX: 42 years / Female INDICATIONS: . Gait disorder. CLINICAL DATA: This is the patient's initial encounter. Patient reports that signs and symptoms have been present for 1 day and indicates a pain score of 7/10. MEDICAL/SURGICAL HISTORY: Hypertension. None. COMPARISON: [facility] – [place], MRA HEAD W/O CONTRAST, 11/23/2017. . TECHNIQUE: Multiplanar, multisequence examination of the brain was performed without and with 9 ml Ga davist (gadobutrol) contrast as a single exam dose. FINDINGS: Cerebrum: The ventricles are normal for age. No evidence of midline shift, mass lesion, hemorrhage or acute infarction. No extraaxial fluid collections are seen. The pituitary gland and suprasellar cistern are normal in configuration. White Matter: There are a few punctate areas of increased signal seen on the FLAIR images within the cerebral white matter. Posterior Fossa: The cerebellum and brainstem are intact. The 4th ventricle is midline. The cerebel lopontine angle is unremarkable. The cerebellar tonsils are normal in position. Diffusion Imaging: No focal areas of restricted diffusion are seen. No evidence of acute infarction . Extracranial: The visualized portions of the orbits and paranasal sinuses are unremarkable. Post Contrast: No abnormal areas of parenchymal or dural enhancement. No evidence of blood-brain ba rrier breakdown. CONCLUSION: 1. No definite acute abnormality seen. 2. There are a few punctate areas of increased signal in the cerebral white matter which may represe nt small foci of demyelination. Electronically signed by: Michael Reese MD 11/23/2017 7:21 PM EDT
--- NOTE | 2017-11-23 19:25 | MR ---
EXAM DATE: 11/23/2017 7:18 PM EDT AGE/SEX: 42 years / Female INDICATIONS: Aneurysm. Slurred speech. CLINICAL DATA: This is the patient's initial encounter. Patient reports that signs and symptoms have been present for 1 day and indicates a pain score of 7/10. MEDICAL/SURGICAL HISTORY: Hypertension. None. COMPARISON: [facility] [place], [place] HEAD W & W/O CONTRAST, 11/23/2017. . TECHNIQUE: 3D [id number] MRA was performed. Source images, multiplanar STS MIP, and 3D volum e MIP reconstructions were reviewed. FINDINGS: The internal carotid arteries are patent bilaterally. There is asymmetry to the A1 segments of the an terior cerebral arteries with less signal seen on the right side. However, the A2 segments are symmet nell. This is within normal limits. There are patent posterior communicating arteries seen bilaterally . The distal flow appears normal and symmetric. No aneurysm is seen. CONCLUSION: Negative MRA. Electronically signed by: Michael Reese MD 11/23/2017 7:24 PM EDT
[2017-11-23] MEDS ORDERED: Gadobutrol PF 10 MMOL/10 ML Vial (for RAD) IV.SIG ONE (22:27)
[2017-11-24 06:40] VITALS: O2SAT 100
--- NOTE | 2017-11-24 08:39 | P.PNNEU ---
Subjective Subjective Comments: No acute events reported No headache No chest pain No dyspnea Active Medications: Active Medications Acetaminophen (Tylenol) 650 mg PO Q4H PRN PRN Reason: Headache, fever, pain 1-4 Last Admin: 11/23/17 08:04 Dose: 650 mg Al Hydroxide/Mg Hydroxide (Milk Of Magnesia Liq) 30 ml PO Q12H PRN PRN Reason: Mild Constipation Aspirin (Ecotrin) 81 mg PO DAILY [facility] Last Admin: 11/23/17 08:03 Dose: 81 mg Atorvastatin Calcium (Lipitor) 40 mg PO HS [facility] Last Admin: 11/23/17 22:04 Dose: 40 mg Bisacodyl (Dulcolax Supp) 10 mg RECTAL DAILY PRN PRN Reason: SEVERE CONSITIPATION Dextrose (D50w Vial) 50 ml IV.PUSH UNSCH PRN PRN Reason: PER HYPOGLYCEMIA PROTOCOL Enoxaparin Sodium (Lovenox Inj) 40 mg SQ Q24H [facility] Last Admin: 11/23/17 16:24 Dose: 40 mg Glucagon (Glucagon Inj) 1 mg OTHER PRN PRN PRN Reason: for Hypoglycemia Protocol Sodium Chloride (Ns Inj) 1,000 mls @ 70 mls/hr IV.CONT .[id number] [facility] Last Admin: 11/23/17 17:17 Dose: 70 mls/hr Lactulose (Lactulose Liq) 30 ml PO DAILY PRN PRN Reason: SEVERE CONSITIPATION Megestrol Acetate (Megace) 40 mg PO DAILY [facility] Last Admin: 11/23/17 17:16 Dose: 40 mg Pregabalin (Lyrica) 50 mg PO TID [facility] Last Admin: 11/23/17 17:16 Dose: 50 mg Sennosides (Senokot) 17.2 mg PO Q12H PRN PRN Reason: Moderate Constipation Allergies/Adverse Reactions: Allergies Allergy/AdvReac Type Severity Reaction Status Date / Time No Known Allergies Allergy Verified 11/22/17 14:16 Review of Systems All other systems reviewed negative except as stated in HPI Physical Exam Vital signs: Vital Signs 11/23/17 09:00 11/23/17 12:00 11/23/17 12:03 Temperature 98.8 F Pulse Rate 79 95 H 93 H Respiratory Rate 16 Blood Pressure 120/71 Pulse Oximetry 100 11/23/17 15:02 11/23/17 16:00 11/23/17 20:00 Temperature 99.0 F 99.1 F Pulse Rate 91 H 100 H 89 Respiratory Rate 18 Blood Pressure 132/69 119/71 Pulse Oximetry 100 100 11/24/17 00:00 11/24/17 04:00 11/24/17 06:39 Temperature 98.4 F 98.1 F 98.9 F Pulse Rate 78 70 88 Respiratory Rate 16 14 16 Blood Pressure 110/70 112/63 142/89 H Pulse Oximetry 98 98 100 Intake & Output 11/23/17 11/24/17 11/24/17 18:59 06:59 18:59 Other: Post Void Residual 250 # Voids 2 Narrative: GENERAL: This is a well-nourished, well-developed patient, in no apparent distress. SKIN: No rashes, ecchymoses or lesions. Warm and dry. CARDIOVASCULAR: Regular rate and rhythm RESPIRATORY: Clear to auscultation. GASTROINTESTINAL: Abdomen soft, non-tender MUSCULOSKELETAL: Extremities without clubbing, cyanosis, or edema. NEUROLOGICAL: Awake and alert. Cranial nerves II through XII intact. Visual [place] full no facial asymmetry tongue midline no pronator drift able raise all 4 extremity gravity reflexes 2+ symmetric plantarflex response no clonus elicited gait not assessed secondary fall risk - Constitutional no acute distress - Routine HEENT Exam Head: Present: normocephalic, atraumatic Eye: Present: EOMI, PERRL Objective Laboratory Results - last 24 hr 11/23/17 11/23/17 11/23/17 06:49 10:23 12:07 Sodium 142 Potassium 3.4 L Chloride 108 H Carbon Dioxide 23.4 Anion Gap 11 BUN 11 Creatinine 0.90 Estimated GFR 82 L POC Glucose 150 H Random Glucose 100 Calcium 8.1 L Magnesium 1.8 Triglycerides 68 Cholesterol 169 LDL Cholesterol, Calc 104 H HDL Cholesterol 51.7 Cholesterol/HDL Ratio 3.26 Urine Opiates Screen Neg Ur Barbiturates Screen Neg Ur Amphetamines Screen Neg U Benzodiazepines Scrn Neg Urine Cocaine Screen Neg U Cannabinoids Screen Neg 11/23/17 11/23/17 11/24/17 13:08 17:14 08:09 Sodium Potassium Chloride Carbon Dioxide Anion Gap BUN Creatinine Estimated GFR POC Glucose 118 H 125 H 104 Random Glucose Calcium Magnesium Triglycerides Cholesterol LDL Cholesterol, Calc HDL Cholesterol Cholesterol/HDL Ratio Urine Opiates Screen Ur Barbiturates Screen Ur Amphetamines Screen U Benzodiazepines Scrn Urine Cocaine Screen U Cannabinoids Screen Review/Management - Diagnosis (1) Cervical spondylosis Code(s): M47.812 - Spondylosis without myelopathy or radiculopathy, cervical region Status: Acute Current Visit: Yes (2) Lumbar spondylosis Code(s): M47.816 - Spondylosis without myelopathy or radiculopathy, lumbar region Status: Acute Current Visit: Yes (3) Transient cerebral ischemia Code(s): G45.9 - Transient cerebral ischemic attack, unspecified Status: Acute Current Visit: Yes - Review/Management Plan: TIA versus hypoglycemic related event MRI brain with very minimal tiny white matter lesions likely related to small vessel disease does not appear to be clinically significant MRI C-spine demonstrates C4 level spondylosis likely causing her right neck pain MRI L-spine demonstrates L3-4 radiculopathy versus nerve root sheath tumor likely resulting in her left thigh pain and weakness Recommendations Neurosurgical evaluation of spinal imaging particularly lumbar spine Aspirin 81 mg PT evaluation Statin for LDL less than 100 Blood pressure control, weight loss, exercise Evaluate for any endocrinopathy, diabetes per medical Follow exam (3) Transient cerebral ischemia Qualifiers: Transient cerebral ischemia type: unspecified Qualified Code(s): G45.9 - Transient cerebral ischemic attack, unspecified
[2017-11-24 08:43] VITALS: RESP 18
[2017-11-24] MEDS: Pregabalin 25 MG Capsule PO SCH ×2 (09:07→13:25)
[2017-11-24] MEDS: Sod Chloride 0.9% Inj 1,000 ML IV.CONT SCH (09:39)
--- NOTE | 2017-11-24 11:43 | P.CONNS ---
<Angel Wilkins - Last Filed: 11/24/17 11:42> History of Present Illness Service: neurosurgery Consult date: 11/24/17 Primary Care Provider: Malcom Hayes DO Family Provider: Malcom Hayes DO Chief Complaint: Slurred speech PMFSH - History History Provided By: Patient - Medical History Medical History: Medical History (Last Reviewed 11/24/17 @ 10:27 by Edwina Stovall [employer] Business Intelligence Developer, PROJECT FACILITATOR) Degeneration of intervertebral disc, site unspecified Hypertension - Tobacco History Second Hand Smoke Exposure: No Tobacco Use In Past 30 Days: No Smoking Status: Never smoker - Alcohol History How Often Do You Have a Drink Containing Alcohol: Monthly or less - Substance Use History Substance History: No History of Abuse - Travel History Recent Travel in the [place] Within the Last 8 Weeks: No Recent Travel Out of the Country Within the Last 8 Weeks: No - Immunization History Tetanus Immunization: Unsure Hx Influenza Vaccine This Season: Yes Medications and Allergies Allergies Allergy/AdvReac Type Severity Reaction Status Date / Time No Known Allergies Allergy Verified 11/22/17 14:16 Home Medications Medication Instructions Recorded Confirmed Type megestrol 40 mg PO DAILY 11/22/17 11/23/17 History pregabalin [Lyrica] 50 mg PO TID 11/22/17 11/22/17 History triamterene-hydrochlorothiazid 1 cap PO DAILY 11/22/17 11/22/17 History Active Medications: Active Medications Acetaminophen (Tylenol) 650 mg PO Q4H PRN PRN Reason: Headache, fever, pain 1-4 Last Admin: 11/23/17 08:04 Dose: 650 mg Al Hydroxide/Mg Hydroxide (Milk Of Magnbrittni Liq) 30 ml PO Q12H PRN PRN Reason: Mild Constipation Aspirin (Ecotrin) 81 mg PO DAILY [facility] Last Admin: 11/24/17 09:07 Dose: 81 mg Atorvastatin Calcium (Lipitor) 40 mg PO HS [facility] Last Admin: 11/23/17 22:04 Dose: 40 mg Bisacodyl (Dulcolax Supp) 10 mg RECTAL DAILY PRN PRN Reason: SEVERE CONSITIPATION Dextrose (D50w Vial) 50 ml IV.PUSH UNSCH PRN PRN Reason: PER HYPOGLYCEMIA PROTOCOL Enoxaparin Sodium (Lovenox Inj) 40 mg SQ Q24H [facility] Last Admin: 11/23/17 16:24 Dose: 40 mg Glucagon (Glucagon Inj) 1 mg OTHER PRN PRN PRN Reason: for Hypoglycemia Protocol Sodium Chloride (Ns Inj) 1,000 mls @ 70 mls/hr IV.CONT .[id number] [facility] Last Infusion: 11/24/17 09:39 Dose: Infused Lactulose (Lactulose Liq) 30 ml PO DAILY PRN PRN Reason: SEVERE CONSITIPATION Megestrol Acetate (Megace) 40 mg PO DAILY [facility] Last Admin: 11/24/17 09:07 Dose: 40 mg Pregabalin (Lyrica) 50 mg PO TID [facility] Last Admin: 11/24/17 09:07 Dose: 50 mg Sennosides (Senokot) 17.2 mg PO Q12H PRN PRN Reason: Moderate Constipation Exam Vital signs: Vital Signs 11/23/17 12:00 11/23/17 12:03 11/23/17 15:02 Temperature 98.8 F Pulse Rate 95 H 93 H 91 H Respiratory Rate 16 Blood Pressure 120/71 Pulse Oximetry 100 11/23/17 16:00 11/23/17 20:00 11/24/17 00:00 Temperature 99.0 F 99.1 F 98.4 F Pulse Rate 100 H 89 78 Respiratory Rate 18 16 Blood Pressure 132/69 119/71 110/70 Pulse Oximetry 100 100 98 11/24/17 04:00 11/24/17 06:39 11/24/17 08:42 Temperature 98.1 F 98.9 F 99.1 F Pulse Rate 70 88 66 Respiratory Rate 14 16 18 Blood Pressure 112/63 142/89 H 135/81 Pulse Oximetry 98 100 100 Intake & Output 11/23/17 11/24/17 11/24/17 18:59 06:59 18:59 Intake Total 1000 / 1000 Balance 1000 / 1000 Intake: IV 1000 / 1000 NS Inj 1,000 ML @ 70 mls/hr IV. 1000 / 1000 CONT .[id number] [facility] Rx#:[id number] Other: Post Void Residual 250 # Voids 2 Results - Laboratory Findings CBC and BMP: 11/22/17 14:21 11/23/17 06:49 Abnormal lab findings: Abnormal Labs 11/22/17 11/22/17 11/23/17 14:21 14:21 04:03 Hgb 9.5 L Hct 30.3 L MCV 74.8 L MCH 23.5 L MCHC 31.4 L RDW 17.6 H Potassium 3.3 L Chloride 108 H Estimated GFR POC Glucose Calcium AST 12 L Troponin I Less than 0.02 L LDL Cholesterol, Calc Urine Clarity Hazy H Urine Occult Blood Moderate H Urine Mucus Few H 11/23/17 11/23/17 11/23/17 06:49 12:07 13:08 Hgb Hct MCV MCH MCHC RDW Potassium 3.4 L Chloride 108 H Estimated GFR 82 L POC Glucose 150 H 118 H Calcium 8.1 L AST Troponin I LDL Cholesterol, Calc 104 H Urine Clarity Urine Occult Blood Urine Mucus 11/23/17 17:14 Hgb Hct MCV MCH MCHC RDW Potassium Chloride Estimated GFR POC Glucose 125 H Calcium AST Troponin I LDL Cholesterol, Calc Urine Clarity Urine Occult Blood Urine Mucus <Dee López - Last Filed: 11/24/17 16:28> History of Present Illness Primary Care Provider: Malcom Hayes DO Family Provider: Malcom Hayes DO History of Present Illness: Ms. Cohen is a 42 year old female who presented with speech difficulties. Yesterday she was at work and had episode of speech difficulties, headaches and dizziness. She was brought to ED by ambulance. She was reported to had a blood glucose level of 50. Neurology was consulted. An MRI Brain without evidence of stroke, possible demyelinating lesions. MRI Cervical spine with disc extrusion at C4-5. Her MRI Lumbar spine with left nerve sheath growth at left L3-4. Ms. Cohen does report of 3 week of progressive lumbar pain, and pain and numbness down her left leg following L4 distribution. She also report of associated weakness left leg at times she has to pick her leg up to walk. She also has had three episode of bladder incontinence. She also complains of neck pain and pain radiating to both trapezius. She reports of some numbness and weakness in the hands. She has been started on low dose aspirin. Review of Systems Constitutional: Reports headache(s), Denies body ache(s), Denies chills, Denies fever(s) Eyes: Denies blind spots, Denies blurry vision, Denies bulging eyes Ears, Nose, Mouth, and Throat: Reports dizziness, Denies poor balance, Denies tongue swelling Cardiovascular: Denies chest pain, Denies chest pain at rest, Denies chest pain with activity Respiratory: Denies cough, Denies coughing up blood Gastrointestinal: Denies abdominal pain, Denies bright, red blood in stools Musculoskeletal: Reports abnormal walking, Reports back pain, Reports muscle weakness, Reports neck pain, Reports numbness, Reports stiffness Neurologic: Reports dizziness, Reports headache(s), Reports localized weakness, Reports radiating pain, Reports tingling, Reports tingling/numbness/burning sensations, Reports weakness, Denies abnormal hearing, Denies seizure-like activity Hematologic/Lymphatic: Denies easy bleeding, Denies easy bruising [facility] - Medical History Medical History: Medical History (Last Reviewed 11/24/17 @ 13:46 by Ernie Brody) Degeneration of intervertebral disc, site unspecified Hypertension Medications and Allergies Active Medications: Active Medications Acetaminophen (Tylenol) 650 mg PO Q4H PRN PRN Reason: Headache, fever, pain 1-4 Last Admin: 11/23/17 08:04 Dose: 650 mg Al Hydroxide/Mg Hydroxide (Milk Of Magnesia Liq) 30 ml PO Q12H PRN PRN Reason: Mild Constipation Aspirin (Ecotrin) 81 mg PO DAILY [facility] Last Admin: 11/24/17 09:07 Dose: 81 mg Atorvastatin Calcium (Lipitor) 40 mg PO HS [facility] Last Admin: 11/23/17 22:04 Dose: 40 mg Bisacodyl (Dulcolax Supp) 10 mg RECTAL DAILY PRN PRN Reason: SEVERE CONSITIPATION Dextrose (D50w Vial) 50 ml IV.PUSH UNSCH PRN PRN Reason: PER HYPOGLYCEMIA PROTOCOL Enoxaparin Sodium (Lovenox Inj) 40 mg SQ Q24H [facility] Last Admin: 11/23/17 16:24 Dose: 40 mg Glucagon (Glucagon Inj) 1 mg OTHER PRN PRN PRN Reason: for Hypoglycemia Protocol Sodium Chloride (Ns Inj) 1,000 mls @ 70 mls/hr IV.CONT .[id number] [facility] Last Infusion: 11/24/17 09:39 Dose: Infused Lactulose (Lactulose Liq) 30 ml PO DAILY PRN PRN Reason: SEVERE CONSITIPATION Megestrol Acetate (Megace) 40 mg PO DAILY [facility] Last Admin: 11/24/17 09:07 Dose: 40 mg Pregabalin (Lyrica) 50 mg PO TID [facility] Last Admin: 11/24/17 13:25 Dose: 50 mg Sennosides (Senokot) 17.2 mg PO Q12H PRN PRN Reason: Moderate Constipation Exam Vital signs: Vital Signs 11/23/17 15:02 11/23/17 16:00 11/23/17 20:00 Temperature 99.0 F 99.1 F Pulse Rate 91 H 100 H 89 Respiratory Rate 18 Blood Pressure 132/69 119/71 Pulse Oximetry 100 100 11/24/17 00:00 11/24/17 04:00 11/24/17 06:39 Temperature 98.4 F 98.1 F 98.9 F Pulse Rate 78 70 88 Respiratory Rate 16 14 16 Blood Pressure 110/70 112/63 142/89 H Pulse Oximetry 98 98 100 11/24/17 08:42 11/24/17 11:55 Temperature 99.1 F 99.1 F Pulse Rate 66 90 Respiratory Rate 18 18 Blood Pressure 135/81 145/90 H Pulse Oximetry 100 100 Intake & Output 11/23/17 11/24/17 11/24/17 18:59 06:59 18:59 Intake Total 1000 / 1000 Balance 1000 / 1000 Intake: IV 1000 / 1000 NS Inj 1,000 ML @ 70 mls/hr IV. 1000 / 1000 CONT .[id number] [facility] Rx#:[id number] Other: Post Void Residual 250 # Voids 2 Narrative: General: Well nourished. Comfortable andin no obvious distress during examination. HEENT: Normocephalic, atraumatic. Normal conjunctiva. No nasal drainage. Gross hearing intact bilaterally. No ear drainage. Neck: No masses, no JVD. Trachea midline. Soft, supple, no meningismus or nuchal rigidity. Mild decrease range of motion with discomfort. Neuro: Awake, alert and oriented to person, place, and time. Speech is clear and fluent. Can follow single and multi-step commands without apraxia. Cranial nerve examination: pupils to be equal, round, and reactive to light. Extra-ocular movements are intact with normal convergence. Facial motor and sensory function are normal and symmetrical. Gross hearing is intact, bilaterally, to finger rub. The uvula is midline and elevates symmetrically with the soft palate. Sternocleidomastoid and deltoid muscles have normal and symmetrical strength. Other cranial nerves are intact. Deep tendon reflexes are 2+ biceps, triceps, and brachioradialis, bilaterally, in the upper extremities. In the lower extremities, the right patellar is 2+, left patellar is absent and Achilles are 2+, bilaterally. There is a bilateral plantar flexion response. Hoffmanns sign is negative. There is no clonus. Sensory examination is diminished light touch following left L4 dermatome otherwise intact in both the upper and lower extremities. Cerebellar examination normal finger to nose bilaterally. Extremities: No obvious deformities. No clubbing. No peripheral edema. No increased tone, atrophy, or fasciculations. 5/5 in all muscle groups of both upper extremities including deltoid, biceps, triceps and subway conductor. In the lower extremities, strength is 4/5 left iliopsoas, quadriceps, 5/5 right iliopsoas, quadriceps, bilateral hamstrings, tibialis anterior, gastrocnemius, and extensor hallucis longus. Lumbar spine has a normal range of motion in anterior flexion, extension, lateral bending and rotation. No pain to palpation over the paraspinous muscles. No obvious deformities. Cerebellar: Intact finger to nose bilaterally Gait: Ambulates without assistance. Left leg limp and slight drag. Lungs: Clear to auscultate bilaterally, nonlabored breathing on room air, no wheezing,rhonchi or crackles. No accessory muscle use. Heart: Regular rate and rhythm Abdomen: Soft, nontender. Positive bowel sounds Skin: Warm and dry, no cyanosis or erythema. Results - Laboratory Findings CBC and BMP: 11/22/17 14:21 11/23/17 06:49 Abnormal lab findings: Abnormal Labs 11/22/17 11/22/17 11/23/17 14:21 14:21 04:03 Hgb 9.5 L Hct 30.3 L MCV 74.8 L MCH 23.5 L MCHC 31.4 L RDW 17.6 H Potassium 3.3 L Chloride 108 H Estimated GFR POC Glucose Calcium AST 12 L Troponin I Less than 0.02 L LDL Cholesterol, Calc Urine Clarity Hazy H Urine Occult Blood Moderate H Urine Mucus Few H 11/23/17 11/23/17 11/23/17 06:49 12:07 13:08 Hgb Hct MCV MCH MCHC RDW Potassium 3.4 L Chloride 108 H Estimated GFR 82 L POC Glucose 150 H 118 H Calcium 8.1 L AST Troponin I LDL Cholesterol, Calc 104 H Urine Clarity Urine Occult Blood Urine Mucus 11/23/17 17:14 Hgb Hct MCV MCH MCHC RDW Potassium Chloride Estimated GFR POC Glucose 125 H Calcium AST Troponin I LDL Cholesterol, Calc Urine Clarity Urine Occult Blood Urine Mucus - Diagnostic Findings Additional findings: Chest X-Ray 11/22/17 14:15 CONCLUSION: No acute cardiopulmonary disease. Head CT 11/22/17 14:15 CONCLUSION: 1. Negative noncontrast head CT. . Carotid Doppler Study 11/23/17 00:00 CONCLUSION: 1. The carotid arteries are patent bilaterally. 2. Bilateral incidental thyroid lesions noted. These could be further evaluated outpatient thyroid ultrasound. Thoracic Spine MRI 11/23/17 00:00 CONCLUSION: Negative thoracic spine MRI examination. There is a levocurvature of the lower thoracic spine. Cervical Spine MRI 11/23/17 16:08 CONCLUSION: 1. Moderate central disc protrusion at the C4-C5 level. There is a component that is superiorly extruded posterior to the C4 vertebral body. 2. Mild bulging at the C5-C6 and to a lesser degree, the C6-C7 level. Head MRI 11/23/17 16:08 CONCLUSION: 1. No definite acute abnormality seen. 2. There are a few punctate areas of increased signal in the cerebral white matter which may represent small foci of demyelination. Head MRA 11/23/17 16:08 CONCLUSION: Negative MRA. Lumbar Spine MRI 11/23/17 16:09 CONCLUSION: 1. Increased signal within the left neural foramina at the L3-L4 level caused by a left neural foraminal disc protrusion versus an underlying mass such as a nerve sheath tumor. This can be further evaluated with intravenous contrast at some point. 2. Scattered facet hypertrophy.
--- NOTE | 2017-11-24 15:09 | P.DS ---
Date of admission: 11/22/17 16:30 Primary care physician: Malcom Hayes DO Brief History from admission: Ms. Cohen is a very pleasant 42-year-old -[place] female with a history of scoliosis, degenerative disc disease who presented to the emergency department on 11/22/2017 due to slurred speech. Patient works [facility] [employer] where she felt somewhat dizzy, blurred vision at around 9:00 AM. She could not express her thoughts. 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 Subsequently she was evaluated by EMS. Her initial blood sugar was 50 and repeat blood sugar was 90s. Blood pressure was 159/107. She reported no other focal neurological deficits. She did have some neck pain when she bends her neck. She also has lower extremity numbness that is chronic. She is being worked up by her primary care physician with regards to lower extremity numbness. At the time of this interview, patient reports resolution of her dysarthria. She continues to have lower extremity numbness. No chest pain, shortness of breath, fever or chills. No changes in bowel or bladder habits. DS: Diagnosis - Discharge Diagnosis (1) Transient cerebral ischemia Status: Acute DS: Medications - Discharge Medications Prescriptions: aspirin 81 mg PO DAILY #30 tab atorvastatin 40 mg PO HS #30 tab DS: Summary Hospital Course: Ms. Cohen is a very pleasant 42-year-old -[place] female with a history of scoliosis, lower extremity numbness who presents to the emergency department due to dysarthria experienced at work on 9 AM on 11/22/2017. Transient ischemic attack. Questionable hypoglycemia. Pt did not eat that day when she had FS 50. FS in house wnl pending A1c -Head CT unremarkable for any acute findings. Brain MRI with ew punctate areas of increased signal in the cerebral white matter which may represent small foci of demyelination. -Keep patient on telemetry SR. -Aspirin 81 mg daily. LDL 104 agrees with statin. Unremarkable Carotid US. Pending ECHO. Monitor for hypoglycemia f/u A1c Moderate central disc protrusion at the C4-C5 level. There is a component that is superiorly extruded posterior to the C4 vertebral body. Mild bulging at the C5-C6 and to a lesser degree, the C6-C7 level. Also with Increased signal within the left neural foramina at the L3-L4 level caused by a left neural foraminal disc protrusion versus an underlying mass such as a nerve sheath tumor. S/P NS eval dw Dr Claudette sanchez for dc with o/p f/u - Time Spent with Patient Total time spent providing and/or coordinating discharge services: - Quality: VTE Deep Vein Thrombosis/Pulmonary Embolism Present on Admission: No Exam Vital signs: Vital Signs 11/23/17 16:00 11/23/17 20:00 11/24/17 00:00 Temperature 99.0 F 99.1 F 98.4 F Pulse Rate 100 H 89 78 Respiratory Rate 18 16 Blood Pressure 132/69 119/71 110/70 Pulse Oximetry 100 100 98 11/24/17 04:00 11/24/17 06:39 11/24/17 08:42 Temperature 98.1 F 98.9 F 99.1 F Pulse Rate 70 88 66 Respiratory Rate 14 16 18 Blood Pressure 112/63 142/89 H 135/81 Pulse Oximetry 98 100 100 11/24/17 11:55 Temperature 99.1 F Pulse Rate 90 Respiratory Rate 18 Blood Pressure 145/90 H Pulse Oximetry 100 Intake & Output 11/23/17 11/24/17 11/24/17 18:59 06:59 18:59 Intake Total 1000 / 1000 Balance 1000 / 1000 Intake: IV 1000 / 1000 NS Inj 1,000 ML @ 70 mls/hr IV. 1000 / 1000 CONT .[id number] [facility] Rx#:[id number] Other: Post Void Residual 250 # Voids 2 Narrative: GENERAL: This is a well-nourished, well-developed patient, in no apparent distress. SKIN: No rashes, ecchymoses or lesions. Warm and dry. CARDIOVASCULAR: Regular rate and rhythm without murmurs, gallops, or rubs. No JVD. RESPIRATORY: Clear to auscultation. Breath sounds equal bilaterally. No wheezes , rales, or rhonchi. GASTROINTESTINAL: Abdomen soft, non-tender, nondistended. No guarding. MUSCULOSKELETAL: Extremities without clubbing, cyanosis, or edema. NEUROLOGICAL: Awake and alert. Cranial nerves II through XII intact. No focal neurological deficits. Normal speech. Ms. Cohen is a very pleasant 42-year-old -[place] female with a history of scoliosis, lower extremity numbness who presents to the emergency department due to dysarthria experienced at work on 9 AM on 11/22/2017. Probable transient ischemic attack. Questionable hypoglycemia -Head CT unremarkable for any acute findings. -Keep patient on telemetry. -Aspirin 81 mg daily. LDL 104 agrees with statin. Unremarkable Carotid US. Pending neuro consult. Order ECHO and UDS. Monitor for hypoglycemia check A1c Chronic bilateral lower extremity numbness -Patient is being worked up in the outpatient setting by her primary care physician. -She will likely need neurology evaluation as well. -To evaluate both TIA and lower extremity numbness, will consult neurology. -Further imaging studies per neurology. Hypokalemia on diuretics. Repeat BMP and mag today. Full code. Lovenox. Results Procedures completed during hospitalization: none Labs on day of discharge: Labs from last 24 hours 11/24/17 11/23/17 11/23/17 08:09 21:35 17:14 POC Glucose 104 125 H Hemoglobin A1c Pending - Impressions ITS Impressions Chest X-Ray 11/22/17 14:15 CONCLUSION: No acute cardiopulmonary disease. Head CT 11/22/17 14:15 CONCLUSION: 1. Negative noncontrast head CT. . Carotid Doppler Study 11/23/17 00:00 CONCLUSION: 1. The carotid arteries are patent bilaterally. 2. Bilateral incidental thyroid lesions noted. These could be further evaluated outpatient thyroid ultrasound. Thoracic Spine MRI 11/23/17 00:00 CONCLUSION: Negative thoracic spine MRI examination. There is a levocurvature of the lower thoracic spine. Cervical Spine MRI 11/23/17 16:08 CONCLUSION: 1. Moderate central disc protrusion at the C4-C5 level. There is a component that is superiorly extruded posterior to the C4 vertebral body. 2. Mild bulging at the C5-C6 and to a lesser degree, the C6-C7 level. Head MRI 11/23/17 16:08 CONCLUSION: 1. No definite acute abnormality seen. 2. There are a few punctate areas of increased signal in the cerebral white matter which may represent small foci of demyelination. Head MRA 11/23/17 16:08 CONCLUSION: Negative MRA. Lumbar Spine MRI 11/23/17 16:09 CONCLUSION: 1. Increased signal within the left neural foramina at the L3-L4 level caused by a left neural foraminal disc protrusion versus an underlying mass such as a nerve sheath tumor. This can be further evaluated with intravenous contrast at some point. 2. Scattered facet hypertrophy. Discharge Plan - Discharge Disposition Patient Disposition: 01 Discharge Home - Discharge Condition Condition: Stable - Discharge Order Discharge Orders: Discharge Order (Routine); Ordered 11/24/17 Ordered By: Yoan Oakley - Physicians Team Primary Care Provider: Malcom Hayes Attending Provider: Yoan Oakley Other Providers: Baudilio Wen MD ; Angel Wilkins MD
[2017-11-24 15:39] VITALS: BP 133/73; PULSE 96; TEMP 98.9
--- NOTE | 2017-11-24 16:53 | ECHRPT ---
Indication: CVA/TIA CONCLUSIONS Mildly dilated left ventricle. Wall thickness is normal. The left ventricular systolic function is low normal with an estimated ejection fraction of 50%. Trace mitral valve regurgitation. BP: / HR: Rhythm: Technical Quality: FINDINGS LEFT VENTRICLE Mildly dilated left ventricle. Wall thickness is normal. The left ventricular systolic function is low normal with an estimated ejection fraction of 50%. RIGHT VENTRICLE Normal right ventricular size and systolic function. LEFT ATRIUM The left atrial size is normal. RIGHT ATRIUM The right atrial size is normal. ATRIAL SEPTUM Normal atrial septal thickness without atrial level shunting by limited color doppler interrogation. AORTA The aortic root and proximal ascending aorta are normal in size on limited imaging. MITRAL VALVE Trace mitral valve regurgitation. AORTIC VALVE Trileaflet aortic valve. No aortic valve stenosis or regurgitation. TRICUSPID VALVE Structurally normal tricuspid valve. No tricuspid valve stenosis or regurgitation. PULMONARY VALVE The pulmonary valve is not well visualized. VESSELS The inferior vena cava is normal in size. PERICARDIUM No pericardial effusion. Chan Holman MD, FACC (Electronically Signed) Final Date:24 November 2017 16:52
[2017-11-24 18:26] LABS: Hemoglobin A1c 5.8 % (4.3-6.0)
== END 2017-11-24 18:25 | disposition home or self-care (01) ==
LOC: NEPFCDU 13:13 → NEPE 13:13 → NEDA 13:13 → NEPFCDU 17:08
PROVIDERS: ADMIT Internal Medicine; ATTEND Internal Medicine